=== PATIENT | male | born 1940 | race Caucasian/White ===

== ENCOUNTER 2016-09-06 11:12 | Day surgery (SDC) | payer MEDICARE, OTHER ==
[2016-09-06] MEDS ORDERED: LACTATED RINGERS 1,000 ML IV ONE (11:36)
[2016-09-06] MEDS ORDERED: MIDAZOLAM 2 MG/2 ML VIAL IVP ONE (14:17)
[2016-09-06] MEDS ORDERED: fentaNYL 100 MCG/2 ML VIAL IVP ONE (14:17)
== END 2016-09-06 11:13 | disposition home or self-care (01) ==
PROC: 0DBC8ZX Excision of Ileocecal Valve, Via Natural or Artificial Opening Endoscopic, Diagnostic (ICD-10-PCS; principal; 2016-09-06 12:15)
DX: Z12.11 Encounter for screening for malignant neoplasm of colon (principal); K57.30 Diverticulosis of large intestine without perforation or abscess without bleeding; D17.5 Benign lipomatous neoplasm of intra-abdominal organs; Z87.891 Personal history of nicotine dependence; Z80.0 Family history of malignant neoplasm of digestive organs; Z83.3 Family history of diabetes mellitus; Z82.49 Family history of ischemic heart disease and other diseases of the circulatory system; Z80.1 Family history of malignant neoplasm of trachea, bronchus and lung; Z81.1 Family history of alcohol abuse and dependence; Z79.82 Long term (current) use of aspirin
CPT/HCPCS: 45385; J7120

== ENCOUNTER 2017-01-23 19:07 | Emergency (ER) | payer MEDICARE, OTHER ==
[2017-01-23] MEDS ORDERED: SODIUM CHLORIDE FLUSH 0.9% 10 ML SYRINGE IVP ONE (19:42)
[2017-01-23 19:45] LABS: BILIRUBIN,URINE NEGATIVE (NEGATIVE)
[2017-01-23 19:46] LABS: UA CHARGE (STRIP ONLY) YES; UR CULTURE IF IND NOT INDICATED
[2017-01-23 19:54] LABS: BASOPHILS % (AUTO) 0.3 %; EOSINOPHILS # (AUTO) 0.1 10^3/uL (0.0-0.7); EOSINOPHILS % (AUTO) 0.6 %; HCT - HEMATOCRIT 45.1 % (42.0-52.0); HGB - HEMOGLOBIN 15.6 g/dL (14.0-18.0); LYMPHOCYTES # (AUTO) 1.3 10^3/uL (1.5-3.5); LYMPHOCYTES % (AUTO) 8.6 %; MEAN CORPUSCULAR HEMOGLOBIN 33.7 pg (27.0-31.0); MEAN CORPUSCULAR HGB CONC 34.5 g/dL (32.0-36.0); MEAN CORPUSCULAR VOLUME 97.7 fL (80.0-94.0); MEAN PLATELET VOLUME 10.2 fL (7.4-11.4); MONOCYTES # (AUTO) 0.5 10^3/uL (0.0-1.0); MONOCYTES % (AUTO) 3.3 %; NEUTROPHILS # (AUTO) 13.2 10^3/uL (1.5-6.6); NEUTROPHILS % (AUTO) 87.2 %; RED BLOOD COUNT 4.62 10^6/uL (4.70-6.10); RED CELL DISTRIBUTION WIDTH 12.1 % (12.0-15.0); UNCORRECTED WHITE BLOOD COUNT 15.2 x10^3/uL; WHITE BLOOD COUNT 15.2 x10^3/uL (4.8-10.8)
[2017-01-23] MEDS: SODIUM CHLORIDE 0.9% 1,000 ML IV ONE (20:18)
[2017-01-23 20:29] LABS: ALBUMIN/GLOBULIN RATIO 1.6 (1.0-2.2); CALCIUM 9.3 mg/dL (8.5-10.3); CREATININE 0.9 mg/dL (0.6-1.2); POTASSIUM 3.6 mmol/L (3.5-5.0); TOTAL PROTEIN 6.8 g/dL (6.7-8.2)
--- NOTE | 2017-01-23 21:13 | ED Physician Documentation ---
PD HPI ABD PAIN - Stated complaint Stated Complaint: ABD PX - Chief complaint Chief Complaint: Abd Pain - History obtained from History obtained from: Patient, Family - History of Present Illness Timing - onset: How many hours ago (6) Timing - duration: Hours (6) Timing - details: Gradual onset Pain level max: 7 Pain level now: 5 Quality: Aching, Pain Location: All over / everywhere Radiation: Other (non-radiating) Improved by: Other (nothing) Worsened by: Other (states nothing makes the pain worse) Associated symptoms: Nausea. No: Fever, Vomiting, Hematemesis, Diarrhea, Constipation, Melena, Hematochezia, Dysuria, Hematuria, Chest pain, Dizzy Similar symptoms before: Has not had sx before Recently seen: Not recently seen - Additional information Additional information: started after eating chicken thighs and ham for lunch Review of Systems Ten Systems: 10 systems reviewed and negative Constitutional: denies: Fever, Chills Nose: denies: Rhinorrhea / runny nose, Congestion Throat: denies: Sore throat Cardiac: denies: Chest pain / pressure Respiratory: denies: Cough GI: denies: Vomiting, Diarrhea, Hematemesis, Bloody / black stool Skin: denies: Rash Musculoskeletal: denies: Neck pain, Back pain Neurologic: denies: Headache PD PAST MEDICAL HISTORY - Past Medical History Cardiovascular: Hypertension Respiratory: Sleep apnea Endocrine/Autoimmune: None GI: Colon polyps : Benign prostate hypertrophy Psych: None Musculoskeletal: Osteoarthritis Derm: None - Past Surgical History General: Colonoscopy HEENT: Tonsil/Adenoidectomy - Present Medications Home Medications: Ambulatory Orders Medication Instructions Recorded Confirmed Losartan [Cozaar] 100 mg PO DAILY 11/29/12 09/06/16 Aspirin 81 mg PO DAILY 01/17/13 09/06/16 Multivitamin [Multivitamins] 1 each PO DAILY 01/17/13 09/06/16 Triamterene/Hydrochlorothiazid 1 tab PO DAILY 09/05/16 09/06/16 [Triamterene-Hctz 37.5-25 mg Cp] Amox/Clav 875/125 [Augmentin] 1 each PO Q12H #20 tablet 01/23/17 - Allergies Allergies/Adverse Reactions: Allergies Allergy/AdvReac Type Severity Reaction Status Date / Time iodine Allergy Intermediate Hives Verified 01/17/13 08:09 IV DYES AdvReac Anaphylaxis Uncoded 01/23/17 19:19 PD ED PE NORMAL - Vitals Vital signs reviewed: Yes - General General: Alert and oriented X 3, No acute distress, Well developed/nourished - HEENT HEENT: PERRL, Moist mucous membranes - Neck Neck: Supple, no meningeal sign - Cardiac Cardiac: RRR, Strong equal pulses - Respiratory Respiratory: No respiratory distress, Clear bilaterally - Abdomen Abdomen: Normal bowel sounds, Soft, Non tender, Non distended - Back Back: No spinal TTP - Derm Derm: Warm and dry, No rash - Neuro Neuro: Alert and oriented X 3 - Psych Psych: Normal mood, Normal affect Results - Vitals Vitals: Vital Signs - 24 hr 01/23/17 01/23/17 19:13 22:46 Temperature 36.6 C 36.8 C Heart Rate 65 88 Respiratory 17 20 Rate Blood Pressure 169/83 H 163/86 H O2 Saturation 95 98 Oxygen O2 Source Room air - Labs Labs: Laboratory Tests 01/23/17 01/23/17 01/23/17 19:32 19:48 20:05 WBC 15.2 H RBC 4.62 L Hgb 15.6 Hct 45.1 MCV 97.7 H MCH 33.7 H MCHC 34.5 RDW 12.1 Plt Count 144 MPV 10.2 Neut # 13.2 H Lymph # 1.3 L Miner # 0.5 Eos # 0.1 Baso # 0.0 Absolute Nucleated RBC 0.00 Nucleated RBCs 0.0 Sodium 140 Potassium 3.6 Chloride 103 Carbon Dioxide 29 Anion Gap 8.0 BUN 25 H Creatinine 0.9 Estimated GFR (MDRD) 82 L Glucose 199 H Lactic Acid Calcium 9.3 Total Bilirubin 1.0 AST 37 ALT 49 Alkaline Phosphatase 54 Total Protein 6.8 Albumin 4.2 Globulin 2.6 Albumin/Globulin Ratio 1.6 Lipase 31 Urine Color YELLOW Urine Clarity CLEAR Urine pH 6.0 Ur Specific Murphy 1.025 Urine Protein NEGATIVE Urine Glucose (UA) NEGATIVE Urine Ketones 15 H Urine Occult Blood NEGATIVE Urine Nitrite NEGATIVE Urine Bilirubin NEGATIVE Urine Urobilinogen 0.2 (NORMAL) Ur Leukocyte Esterase NEGATIVE Ur Microscopic Review NOT INDICATED Urine Culture Comments NOT INDICATED 01/23/17 20:05 WBC RBC Hgb Hct MCV MCH MCHC RDW Plt Count MPV Neut # Lymph # Miner # Eos # Baso # Absolute Nucleated RBC Nucleated RBCs Sodium Potassium Chloride Carbon Dioxide Anion Gap BUN Creatinine Estimated GFR (MDRD) Glucose Lactic Acid 1.4 Calcium Total Bilirubin AST ALT Alkaline Phosphatase Total Protein Albumin Globulin Albumin/Globulin Ratio Lipase Urine Color Urine Clarity Urine pH Ur Specific Murphy Urine Protein Urine Glucose (UA) Urine Ketones Urine Occult Blood Urine Nitrite Urine Bilirubin Urine Urobilinogen Ur Leukocyte Esterase Ur Microscopic Review Urine Culture Comments - Rads (name of study) CT abdomen and pelvis Radiology: Prelim report reviewed, EMP read contemporaneously, See rad report ( Acute sigmoid diverticulitis. No complication such as perforation or an abscess. No obstruction. Normal appendix. Marked prostate and seminal vesicle enlargement. ) PD MEDICAL DECISION MAKING - ED course Complexity details: reviewed results, re-evaluated patient, considered differential, d/w patient, d/w family ED course: Patient is a 76-year-old gentleman with abdominal pain today, found to have acute sigmoid diverticulitis that is uncomplicated. He is well-appearing, nontoxic. Afebrile. Did discuss admission, but prefers to go home at this time. Started on Augmentin. We will have him follow-up closely with his PCP. He will return if he worsens including fevers or worsening abdominal pain. Patient and family counseled regarding signs and symptoms for which I believe and urgent re-evaluation would be necessary. Patient with good understanding of and agreement to plan and is comfortable going home at this time This document was made in part using voice recognition software. While efforts are made to proofread this document, sound alike and grammatical errors may occur. Departure - Departure Disposition: 01 Home, Self Care Clinical Impression: Diverticulitis Qualifiers: Diverticulitis site: large intestine Diverticulitis bleeding: without bleeding Diverticulitis complication: without perforation or abscess Qualified Code(s): K57.32 - Diverticulitis of large intestine without perforation or abscess without bleeding Condition: Good Instructions: ED Diverticulitis Follow-Up: Christopher Motta MD [Primary Care Provider] - Within 3 Days (for repeat evaluation ) Prescriptions: Amox/Clav 875/125 [Augmentin] 1 each PO Q12H #20 tablet Comments: Return if you worsen including worsening pain or fevers. Take all antibiotics until gone. Discharge Date/Time: 01/23/17 22:49
--- NOTE | 2017-01-23 21:54 | CT Preliminary Report ---
Exam: CT Abdomen/Pelvis W/O IMPRESSION: 1. Acute sigmoid diverticulitis. 2. No complication such as perforation or an abscess. No obstruction. Normal appendix. 3. Marked prostate and seminal vesicle enlargement. [facility] SITE ID: [id number]
--- NOTE | 2017-01-23 22:01 | CT Report ---
EXAM: CT ABDOMEN AND PELVIS EXAM DATE: 01/23/2017 09:18 PM. CLINICAL HISTORY: Abdominal pain. COMPARISONS: None. TECHNIQUE: Routine helical CT imaging was performed through the abdomen and pelvis. IV contrast: None . Enteric contrast: None. Reconstructions: Coronal and sagittal. In accordance with CT protocol optimization, one or more of the following dose reduction techniques w ere utilized for this exam: automated exposure control, adjustment of mA and/or KV based on patient s ize, or use of iterative reconstructive technique. FINDINGS: Lung Bases: Mild cardiac enlargement. No effusions. Small hiatal hernia. Liver: Normal. No masses. Gallbladder/Bile Ducts: Unremarkable. Spleen: Normal. Pancreas: Normal. Adrenal Glands: Normal. Kidneys: Normal. No masses or hydronephrosis. Peritoneal Cavity/Bowel: Long segment of moderate distal sigmoid colon wall thickening in the setting of diverticulosis and mild adjacent stranding. No complication such as perforation, obstruction or a n abscess. The appendix is well visualized and normal. No bulky adenopathy. Pelvic Organs: Moderate to marked seminal vesicle and prostate gland enlargement with multiple coarse prostate calcifications noted. Vasculature: Diffuse atheromatous plaques are present in the abdominal aorta and branch vessels. No a neurysm. Normal IVC. Bones: No significant abnormality. Other: None. IMPRESSION: 1. Acute sigmoid diverticulitis. 2. No complication such as perforation or an abscess. No obstruction. Normal appendix. 3. Marked prostate and seminal vesicle enlargement. [facility] Referring Provider Line: [phone] SITE ID: [id number]
[2017-01-23] MEDS: AMOX/CLAV 875 MG/125 MG TABLET PO STA (22:38)
[2017-01-23] MEDS ORDERED: AMOX/CLAV 875 MG/125 MG TABLET PO ONE (22:39)
[2017-01-23 22:49] VITALS: BP 163/86
== END 2017-01-23 22:49 | disposition home or self-care (01) ==
LOC: ED 19:07
DX: K57.32 Diverticulitis of large intestine without perforation or abscess without bleeding (principal); I10 Essential (primary) hypertension; Z79.82 Long term (current) use of aspirin
CPT/HCPCS: 36415; 74176; 80053; 81001; 81003; 83605; 83690; 85025; 87086; 99283; 99284

== ENCOUNTER 2017-01-26 13:18 | Observation (INO) | payer MEDICARE, OTHER ==
--- NOTE | 2017-01-26 16:18 | ED Physician Documentation ---
PD HPI ABD PAIN - Stated complaint Stated Complaint: ABD PX - Chief complaint Chief Complaint: Abd Pain - History obtained from History obtained from: Patient - History of Present Illness Timing - onset: How many days ago (5-6 days of left abd pain, seen 3 days ago in ER and Rx with Augmentin for diverticulitis. He says having worse pain the past 3 days, some diarrhea, nausea, less appetite.) Timing - details: Gradual onset, Still present (worsened the past 3 days since being seen.) Quality: Cramping, Aching, Sharp, Pain Location: LUQ, LLQ Radiation: No: Chest, Left flank Improved by: No: Eating Worsened by: Eating Associated symptoms: Nausea, Diarrhea, Loss of appetite. No: Fever, Vomiting, Hematochezia, Weight loss Recently seen: Emergency Dept (3 days ago for same, Dx with diverticulitis sigmoid by CT, with elevated white count. Was able to treat outpatient. Patient says some diarrhea since discharge and has had worsened pain left side. No generalized pain. Nausea and less appetite, but no vomiting. No blood in stool.) Review of Systems Constitutional: reports: Myalgias. denies: Fever, Chills Nose: denies: Rhinorrhea / runny nose, Congestion Throat: denies: Sore throat Cardiac: denies: Chest pain / pressure Respiratory: denies: Cough GI: reports: Abdominal Pain, Nausea, Diarrhea. denies: Vomiting, Constipation, Bloody / black stool : denies: Dysuria, Frequency Skin: denies: Rash, Lesions Musculoskeletal: denies: Back pain Neurologic: reports: Generalized weakness. denies: Focal weakness, Numbness, Near syncope Endocrine: denies: Weight loss Immunocompromised: denies: Immunocompromised PD PAST MEDICAL HISTORY - Past Medical History Cardiovascular: Hypertension Respiratory: Sleep apnea Endocrine/Autoimmune: None GI: Colon polyps : Benign prostate hypertrophy Psych: None Musculoskeletal: Osteoarthritis Derm: None - Past Surgical History Past Surgical History: Yes General: Colonoscopy HEENT: Tonsil/Adenoidectomy - Present Medications Home Medications: Ambulatory Orders Medication Instructions Recorded Confirmed Losartan [Cozaar] 100 mg PO DAILY 11/29/12 01/26/17 Aspirin 81 mg PO DAILY 01/17/13 01/26/17 Multivitamin [Multivitamins] 1 each PO DAILY 01/17/13 01/26/17 Triamterene/Hydrochlorothiazid 1 tab PO DAILY 09/05/16 01/26/17 [Triamterene-Hctz 37.5-25 mg Cp] Amox/Clav 875/125 [Augmentin] 1 each PO Q12H #20 tablet 01/23/17 01/26/17 Tamsulosin [Flomax] 0.4 mg PO ONCE 01/26/17 01/26/17 - Allergies Allergies/Adverse Reactions: Allergies Allergy/AdvReac Type Severity Reaction Status Date / Time iodine Allergy Intermediate Hives Verified 01/26/17 13:23 IV DYES AdvReac Anaphylaxis Uncoded 01/26/17 13:23 - Social History Does the pt smoke?: No Smoking Status: Never smoker Does the pt drink ETOH?: Yes Does the pt have substance abuse?: No - Family History Family history: reports: Non contributory - Immunizations Immunizations are current?: Yes PD ED PE NORMAL - Vitals Vital signs reviewed: Yes - General General: Alert and oriented X 3, Well developed/nourished - HEENT HEENT: PERRL (nonicteric), Pharynx benign - Neck Neck: Supple, no meningeal sign, No adenopathy - Cardiac Cardiac: RRR, No murmur - Respiratory Respiratory: Clear bilaterally - Abdomen Abdomen: Normal bowel sounds, Non distended, No organomegaly, Other (tender left abdomen upper and lower locally without percussion nor rebound tenderness. Bowel sounds somewhat diminished. ) - Back Back: No CVA TTP - Derm Derm: Normal color, No rash - Extremities Extremities: No tenderness to palpate, Normal ROM s pain, No edema, No calf tenderness / cord - Neuro Neuro: Alert and oriented X 3, No motor deficit, Normal speech Results - Vitals Vitals: Vital Signs - 24 hr 01/26/17 13:21 Temperature 36.2 C L Heart Rate 81 Respiratory 16 Rate Blood Pressure 148/79 H O2 Saturation 97 Oxygen O2 Source Room air - Labs Labs: Laboratory Tests 01/26/17 01/26/17 01/26/17 16:50 17:31 17:31 WBC 11.7 H RBC 4.98 Hgb 16.5 Hct 48.8 MCV 98.0 H MCH 33.1 H MCHC 33.8 RDW 12.2 Plt Count 134 MPV 9.9 Neut # 9.0 H Lymph # 1.6 Walker # 0.9 Eos # 0.2 Baso # 0.1 Absolute Nucleated RBC 0.00 Nucleated RBCs 0.0 Sodium 142 Potassium 3.9 Chloride 102 Carbon Dioxide 30 Anion Gap 10.0 BUN 17 Creatinine 0.8 Estimated GFR (MDRD) 94 Glucose 105 H Lactic Acid Calcium 9.5 Total Bilirubin 1.2 H AST 23 ALT 34 Alkaline Phosphatase 59 Total Protein 7.7 Albumin 4.6 Globulin 3.1 Albumin/Globulin Ratio 1.5 Lipase 23 Urine Color YELLOW Urine Clarity CLEAR Urine pH 6.5 Ur Specific Rob[place] 1.020 Urine Protein NEGATIVE Urine Glucose (UA) NEGATIVE Urine Ketones NEGATIVE Urine Occult Blood NEGATIVE Urine Nitrite NEGATIVE Urine Bilirubin NEGATIVE Urine Urobilinogen 0.2 (NORMAL) Ur Leukocyte Esterase NEGATIVE Ur Microscopic Review NOT INDICATED Urine Culture Comments NOT INDICATED 01/26/17 17:59 WBC RBC Hgb Hct MCV MCH MCHC RDW Plt Count MPV Neut # Lymph # Walker # Eos # Baso # Absolute Nucleated RBC Nucleated RBCs Sodium Potassium Chloride Carbon Dioxide Anion Gap BUN Creatinine Estimated GFR (MDRD) Glucose Lactic Acid 0.9 Calcium Total Bilirubin AST ALT Alkaline Phosphatase Total Protein Albumin Globulin Albumin/Globulin Ratio Lipase Urine Color Urine Clarity Urine pH Ur Specific Rob[place] Urine Protein Urine Glucose (UA) Urine Ketones Urine Occult Blood Urine Nitrite Urine Bilirubin Urine Urobilinogen Ur Leukocyte Esterase Ur Microscopic Review Urine Culture Comments - Rads (name of study) abd CT Radiology: Prelim report reviewed, EMP read contemporaneously (no abscess nor perforation. Similar sigmoid wall thickening/ stranding.) PD MEDICAL DECISION MAKING - ED course Complexity details: reviewed results, considered differential (Persistent pain and nausea, actually worsened, despite oral abx for 3 days. Does not have peritoneal signs, and CT does not show perforation nor abscess. However, is worse symptoms and still some leukocytosis, so need to enhance treatment to IV dosing/meds. ), d/w patient, d/w clothing consultant (Dr. Ventura, Hospitalist, who will pass on information to nocturnal hospitalist) Departure - Departure Disposition: ED Place in Observation Clinical Impression: Failure of outpatient treatment Abdominal pain Qualifiers: Abdominal location: left upper quadrant Qualified Code(s): R10.12 - Left upper quadrant pain Diverticulitis Qualifiers: Diverticulitis site: large intestine Diverticulitis bleeding: without bleeding Diverticulitis complication: without perforation or abscess Qualified Code(s): K57.32 - Diverticulitis of large intestine without perforation or abscess without bleeding Condition: Stable Record reviewed to determine appropriate education?: Yes
[2017-01-26] MEDS ORDERED: cefTRIAXone 1 GM in SODIUM CHLORIDE 0.9% MINIBAG 100 ML IV STA (16:46)
[2017-01-26] MEDS ORDERED: metroNIDAZOLE 500 MG/100 ML 100 ML IV ONE (16:46)
[2017-01-26] MEDS ORDERED: ONDANSETRON 4 MG/2 ML VIAL IVP STA (16:48)
[2017-01-26] MEDS ORDERED: HYDROmorphone 1 MG/ML SYRINGE IVP STA (16:48)
[2017-01-26 17:06] LABS: BILIRUBIN,URINE NEGATIVE (NEGATIVE); PH,URINE 6.5 PH (5.0-7.5)
[2017-01-26] MEDS ORDERED: HYDROmorphone 1 MG/ML SYRINGE ONE (17:07)
[2017-01-26] MEDS ORDERED: ONDANSETRON 4 MG/2 ML VIAL ONE (17:07)
[2017-01-26] MEDS ORDERED: cefTRIAXone 1 GM VIAL ONE (17:08)
[2017-01-26 17:09] LABS: UA CHARGE (STRIP ONLY) YES; UR CULTURE IF IND NOT INDICATED
[2017-01-26] MEDS ORDERED: metroNIDAZOLE 500 MG/100 ML 100 ML ONE (17:53)
[2017-01-26 17:59] LABS: BASOPHILS # (AUTO) 0.1 10^3/uL (0.0-0.1); BASOPHILS % (AUTO) 0.8 %; EOSINOPHILS # (AUTO) 0.2 10^3/uL (0.0-0.7); EOSINOPHILS % (AUTO) 1.4 %; HCT - HEMATOCRIT 48.8 % (42.0-52.0); HGB - HEMOGLOBIN 16.5 g/dL (14.0-18.0); LYMPHOCYTES # (AUTO) 1.6 10^3/uL (1.5-3.5); LYMPHOCYTES % (AUTO) 13.8 %; MEAN CORPUSCULAR HEMOGLOBIN 33.1 pg (27.0-31.0); MEAN CORPUSCULAR HGB CONC 33.8 g/dL (32.0-36.0); MEAN PLATELET VOLUME 9.9 fL (7.4-11.4); MONOCYTES # (AUTO) 0.9 10^3/uL (0.0-1.0); MONOCYTES % (AUTO) 7.6 %; NEUTROPHILS % (AUTO) 76.4 %; RED BLOOD COUNT 4.98 10^6/uL (4.70-6.10); RED CELL DISTRIBUTION WIDTH 12.2 % (12.0-15.0); UNCORRECTED WHITE BLOOD COUNT 11.7 x10^3/uL; WHITE BLOOD COUNT 11.7 x10^3/uL (4.8-10.8)
[2017-01-26 18:00] LABS: ALBUMIN/GLOBULIN RATIO 1.5 (1.0-2.2); BILIRUBIN,TOTAL 1.2 mg/dL (0.2-1.0); CALCIUM 9.5 mg/dL (8.5-10.3); CREATININE 0.8 mg/dL (0.6-1.2); POTASSIUM 3.9 mmol/L (3.5-5.0); TOTAL PROTEIN 7.7 g/dL (6.7-8.2)
[2017-01-26] MEDS ORDERED: KETOROLAC 60 MG/2 ML VIAL IVP STA (18:39)
[2017-01-26] MEDS ORDERED: KETOROLAC 30 MG/ML VIAL ONE (18:46)
[2017-01-26] MEDS ORDERED: SODIUM CHLORIDE 0.9% 1,000 ML IV ONE (18:48)
--- NOTE | 2017-01-26 19:02 | CT Preliminary Report ---
Exam: CT Abdomen/Pelvis W/O IMPRESSION: 1. 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 2. Distal colonic diverticulosis without noncontrast CT evidence of acute diverticulitis. [facility] The above critical findings were discussed with Dr. Murray by Dr. Samantha Finnegan at 18:56 hrs on . SITE ID: [id number]
--- NOTE | 2017-01-26 19:05 | CT Report ---
EXAM: CT ABDOMEN AND PELVIS EXAM DATE: 01/26/2017 06:12 PM. CLINICAL HISTORY: Diverticulitis, worsening pain after 3 days of treatment area COMPARISONS: 01/23/2017. TECHNIQUE: Routine helical CT imaging was performed through the abdomen and pelvis. IV contrast: None . Enteric contrast: None. Reconstructions: Coronal and sagittal. In accordance with CT protocol optimization, one or more of the following dose reduction techniques w ere utilized for this exam: automated exposure control, adjustment of mA and/or KV based on patient s ize, or use of iterative reconstructive technique. FINDINGS: Lung Bases: Mild linear bibasilar atelectasis. Liver: Unremarkable noncontrast appearance. Gallbladder/Bile Ducts: Unremarkable. No visualized stones or biliary ductal dilatation. Spleen: Normal size. Ill-defined wedge-shaped hypoattenuating region in the midportion/inferior splee n (see axial image 19 and coronal image 38). Mild perisplenic fat stranding. Pancreas: No contour deforming mass or ductal dilatation. Adrenal Glands: Normal. Kidneys and Ureters: No contour deforming mass, stones, hydronephrosis, or hydroureter. Peritoneal Cavity/Bowel: Descending and sigmoid colon diverticulosis. No evidence of focal bowel wall thickening or adjacent mesenteric fat stranding to suggest acute inflammatory process. No evidence f or bowel obstruction. The appendix is normal. No free fluid, pneumoperitoneum, or hortencia adenopathy. Pelvic Organs: The prostate gland is enlarged, measuring 6 cm in transverse dimension, with a hypertr ophied median lobe protruding into the bladder base. Mild diffuse bladder wall thickening, possibly s equela of chronic obstructive uropathy. Vasculature: Extensive atherosclerotic calcifications within the aorta and iliac arteries. No aneurys m. Bones: Mild degenerative changes within the spine. No acute bony abnormality. Other: Unchanged tiny fat-containing right inguinal hernia. IMPRESSION: 1. 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 2. Distal colonic diverticulosis without noncontrast CT evidence of acute diverticulitis. [facility] The above critical findings were discussed with Dr. Murray by Dr. Samantha Finnegan at 18:56 hrs on . Referring Provider Line: [phone] SITE ID: [id number]
[2017-01-26] MEDS ORDERED: SODIUM CHLORIDE FLUSH 0.9% 10 ML SYRINGE IVP PRN (19:58)
[2017-01-26] MEDS ORDERED: ONDANSETRON ODT 4 MG TABLET TL STA (20:02)
[2017-01-26] MEDS ORDERED: HYDROcod/ACETAM 10 MG/325 MG TABLET PO PRN (20:02)
[2017-01-26] MEDS ORDERED: ONDANSETRON 4 MG/2 ML VIAL IVP PRN (20:02)
[2017-01-26] MEDS ORDERED: CIPROFLOXACIN 400 MG/200 ML 200 ML IV SCH (21:00)
[2017-01-26] MEDS ORDERED: TAMSULOSIN 0.4 MG CAPSULE PO SCH (21:00)
[2017-01-26] MEDS ORDERED: metroNIDAZOLE 500 MG/100 ML 100 ML IV SCH (21:00)
[2017-01-26] MEDS: SODIUM CHLORIDE FLUSH 0.9% 10 ML SYRINGE IVP SCH (21:28)
--- NOTE | 2017-01-26 22:11 | HISTORY & PHYSICAL EXAMINATION ---
DATE OF ADMISSION: 01/26/2017 PRIMARY CARE PROVIDER: Jorge Motta MD ADMITTING PROVIDER: Nini Pizarro MD CHIEF COMPLAINT: Worsening diverticulitis pain. HISTORY OF PRESENT ILLNESS: The patient is a 76-year-old man who was seen in the emergency room a few days ago with left lower quadrant pain, was diagnosed with diverticulitis because of diverticulosis on CT and by labs. He was put on Augmentin. He developed nausea and mild diarrhea with the Augmentin. Today, he felt like his pain was sharper, more stabbing, and came back to the emergency room. He was evaluated by Dr. Murray and a repeat CT scan showed no change. White cell count was improved. He was afebrile, but on the basis of increasing pain, Dr. Murray labeled this as failed outpatient treatment of diverticulitis and he has asked us to place him under observation. The patient was not given the option of going home. He now feels like he is too sedated to drive home with the use of narcotics, and his cannot come pick him up. In pondering his pain management, he feels like it would be good to place him in observation to see if he can respond to oral pain medicines to be better controlled with home. He has had no vomiting. Able to keep food down. He is completely ambulatory. Plays golf 2 times a week and has not been impaired this week. PAST MEDICAL HISTORY 1. Obstructive sleep apnea hypopnea syndrome since June 2005. He was tried on CPAP, but it does not work for him so he stopped using it and was re-seen in 2014. He was tried on a new mask and with his last visit August 2015 was mainly compliant. 2. Hypertension. An increase in hypertension with poor control resulted in [facility]- [facility] 2014. 3. Benign prostatic hypertrophy. 4. Bilateral cataracts with cataract extraction and intraocular lens implant. One was November 2012 and the other was December 2012. 5. History of colon polyps. A colonoscopy performed in 2009. He had a followup colonoscopy August 2016. ALLERGIES: IODINE. MEDICATIONS 1. Aspirin 81 mg a day. 2. Cozaar 100 mg a day. 3. Tamsulosin 0.4 mg a day. 4. Multivitamin 1 tablet daily. 5. Triamterene/hydrochlorothiazide 1 tablet daily. 6. Augmentin 875 with clavulanic acid 125 mg every 12 hours as needed since January 23. SOCIAL HISTORY: He stopped smoking in 1989. He usually has 2 glasses of wine, 2 cocktails, and possibly a beer on the day he golfs on a daily basis. He has been told that he drinks too much and feels this is an arbitrary number and that he is not being impaired because of it. He has no history of other recreational substance abuse, specifically cannabis, cocaine, heroin, LSD, methamphetamines. He is to his first . They live in their own home. They have been living on the [place] for 17 years. 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 FAMILY HISTORY: Mother had liver cancer. Father had diabetes. One sibling had mesothelioma and he has never had children. REVIEW OF SYSTEMS: CONSTITUTIONAL: He denies any complains of fever, chills, sweats, unexpected weight changes. ENT: Denies any problems with vision, headache, problems swallowing, dentition, or hearing. PULMONARY: Denies bronchitis, emphysema, chest congestion. CARDIAC: Denies edema, orthopnea, chest pain, valvular heart disease, murmurs. GASTROINTESTINAL: This is his first presentation of abdominal pain. No bloody diarrhea. Mild diarrhea with the antibiotic. GENITOURINARY: Urgency, frequency, decreased stream, nocturia all present as forms of prostatism. Unchanged. No hematuria, no flank pain. JOINTS: Generalized aching that he attributes to aging and mild osteoarthritis. Unchanged for several decades. No new joint effusions, trauma. SKIN: Denies moles, lesions, rashes. PSYCHIATRIC: Denies anxiety, depression, suicidal ideation. SECURITY OPERATIONS ANALYST: Denies syncope, seizures, memory loss. PHYSICAL EXAMINATION GENERAL: He is a well-nourished, well-developed, middle-aged white male who looks younger than stated age. VITAL SIGNS: Temperature is 36.2, pulse of 66, blood pressure is 148/90. He has received sedation. He has received narcotics for pain management and is slightly sedated with speech slightly slurred. He is highly annoyed at being here the length of time he has been. He is also annoyed that he feels I am asking intrusive and personal questions even after I explained to him what a history and physical does and why we ask the questions we do. He is particularly annoyed at my questions about alcohol use and has anybody ever told that he should not drink as much as he does. HEAD AND NECK: Unremarkable. Pupils are reactive. Lips are dry. Oral mucosa is pink. No facial asymmetry. Speech is normal. Neck is supple without goiter, bruits, or adenopathy. LUNGS: Clear to auscultation and percussion with slight barrel chest. No prolonged exhalation. CARDIOVASCULAR: PMI is normally placed with a regular rate and rhythm. ABDOMEN: Obese, soft. Minimally tender in the left lower quadrant without rebound or guarding. There are no distention, no rebound, no guarding. Normal bowel sounds. EXTREMITIES: Warm. Without clubbing, cyanosis, or edema. He has some mild superficial venous perforators around the medial malleoli. Well tanned. NEUROLOGIC: He is alert and oriented to person, place, and time. Gives a lucid history. Follows 2-step commands. Upper and lower extremity strength testing are normal. No tremors. LABORATORIES: CMP is normal with a random glucose 105. He had a random glucose of 199 on January 23. Total bilirubin is 1.2. Liver enzymes are normal. In the past, his bilirubin has been 1.3 in 2015. White cell count is 11.7. It down from 15.2. Hemoglobin and hematocrit are normal. MCV mildly elevated at 98. Platelets 134. Urinalysis is negative. IMAGING: CT of the abdomen and pelvis was done January 23 and done today and compared. He has mild linear bibasilar atelectasis. He has ill-defined wedge- shaped hypo-attenuating region in the mid portion inferior spleen. No splenomegaly. Descending and sigmoid colon diverticulosis with no focal bowel wall thickening or adjacent stranding to suggest acute inflammatory process. No evidence of bowel obstruction. Prostate is enlarged. ASSESSMENT/PLAN 1. Left lower quadrant abdominal pain. He is being treated ostensibly as diverticulitis. He has an elevated white cell count and pain in the appropriate area. However, 2 CT scans confirmed no adjacent bowel inflammation or stranding. This is puzzling. He will be placed in observation overnight. Changed to Cipro and Flagyl. Transition to oral pain medicines and hopefully sent home with pain controlled. He is amenable to that. 2. Abnormal CT of the spleen. Nonspecific finding. Dr. Murray has spoken to General Surgery about this. I do not know what the conversation is and I will read Dr. Murray's note. 3. Alcohol abuse. Mild and continuous. Mild macrocytosis, but no evidence of cirrhosis or thrombocytopenia on exam. 4. Hypertension. Resume his usual medications. Not at goal. I hesitated to tell him that he might want to stop drinking. He was already annoyed as it was. 5. Obstructive sleep apnea. No CPAP mask brought from home. 6. FULL CODE STATUS per patient's wishes. 7. Deep venous thrombosis prophylaxis will just be encouraging ambulation. JOB #: [id number] EXT JOB #:[id number] MTDD
[2017-01-26] MEDS ORDERED: METOPROLOL SUCCINATE 50 MG TABLET PO SCH (22:21)
[2017-01-27] MEDS: metroNIDAZOLE 500 MG/100 ML 100 ML IV SCH ×2 (00:28→06:07)
[2017-01-27 06:03] LABS: BASOPHILS # (AUTO) 0.1 10^3/uL (0.0-0.1); BASOPHILS % (AUTO) 0.6 %; EOSINOPHILS # (AUTO) 0.3 10^3/uL (0.0-0.7); EOSINOPHILS % (AUTO) 2.8 %; HCT - HEMATOCRIT 43.9 % (42.0-52.0); LYMPHOCYTES # (AUTO) 2.1 10^3/uL (1.5-3.5); LYMPHOCYTES % (AUTO) 22.4 %; MEAN CORPUSCULAR HEMOGLOBIN 33.8 pg (27.0-31.0); MEAN CORPUSCULAR HGB CONC 34.3 g/dL (32.0-36.0); MEAN CORPUSCULAR VOLUME 98.5 fL (80.0-94.0); MEAN PLATELET VOLUME 10.4 fL (7.4-11.4); MONOCYTES # (AUTO) 0.7 10^3/uL (0.0-1.0); MONOCYTES % (AUTO) 7.6 %; NEUTROPHILS # (AUTO) 6.2 10^3/uL (1.5-6.6); NEUTROPHILS % (AUTO) 66.6 %; NUCLEATED RED BLOOD CELLS AUTO 0.1 /100WBC; RED BLOOD COUNT 4.45 10^6/uL (4.70-6.10); UNCORRECTED WHITE BLOOD COUNT 9.4 x10^3/uL; WHITE BLOOD COUNT 9.4 x10^3/uL (4.8-10.8)
[2017-01-27] MEDS: SODIUM CHLORIDE FLUSH 0.9% 10 ML SYRINGE IVP SCH (06:07)
[2017-01-27 06:23] LABS: PLATELET ESTIMATE, MANUAL DECREASED (<130,000) (NORMAL)
--- NOTE | 2017-01-27 07:04 | PROVIDER PROGRESS NOTE ---
School Supervisor Note - School Supervisor Note School Supervisor Note: Overnight no fever. Pain at max has been a 3. Controlled by oral meds. Vitals are reviewed. clear lungs RRR Abd obese, soft, No real LLQ pain this am. No rebound or guarding. A/P LLQ pain being treated at diverticulitis. I called [facility] and had naturalization examiner MD , Dr. Helms, review the CT for the wedge infarct of the spleen. He confirms that there is no diverticultis on radiologic imaging and when we review the CT of 01/23, the wedge in the spleen is starting to appear and that the call for "itis" may be an overcall. He sees that there is diverticulosis but allows for interpretation where another radiologist would possible call for "itis" on subtle findings. In reviewing UpToDate: Splenic infarction Splenic infarction occurs when the splenic artery or one or more of its sub-branches become occluded with an infected or bland embolus or clot. Affected patients classically present with acute left upper quadrant pain and tenderness, although atypical presentations are common. As an example, in a study of 26 patients with splenic infarction seen at a single medical center, the following clinical and laboratory features were noted [50]: ?Left-sided abdominal pain: 48 percent; abdominal pain was absent in 16 percent / He has this ?Fever >38C: 36 percent. Not present. ?Left upper quadrant abdominal tenderness: 36 percent; abdominal tenderness was absent in 32 percent. He has LLQ pain. ?Nausea or vomitin percent. Present. ?Splenomegaly: 32 percent. Radiology does feel there is mild hepatospenomegaly and that liver does look cirrhotic. ?Elevated serum lactate dehydrogenase (LDH): 71 percent. Not checked in him. ?White blood cell count >12,000/microL: 56 percent. Present. Others have described fever, unexplained pleural infusion, and/or splenic or peritoneal friction rub as initial manifestations of a septic splenic infarction [50,51]. Splenic infarction can occur in a variety of settings [52]: 1. Presence of a hypercoagulable state (eg, malignancy, antiphospholipid syndrome) [53]. 2. Embolic disease (eg, atrial fibrillation, patent foramen ovale, atheromatous disease, infective endocarditis) [44,54,55]. Splenic artery embolization has been therapeutically employed in order to reduce splenic blood flow in some patients with severe portal hypertension, prior to laparoscopic splenectomy in order to diminish intraoperative blood loss, as well as for the treatment of splenic injury [56]. (See "Ascites in adults with cirrhosis: Diuretic-resistant ascites", section on 'Splenic artery embolization' and "Hereditary spherocytosis : Clinical features, diagnosis, and treatment", section on 'Splenectomy'.) 3. Underlying myeloproliferative neoplasm with associated (often massive) splenomegaly (eg, primary myelofibrosis, post-polycythemia vera myelofibrosis). 4. Underlying hemoglobinopathy, especially sickle cell disease [57-59]. (See "Hepatic manifestations of sickle cell disease", section on 'Computed tomography ' and 'Hyposplenism and asplenia' above.) 5. Any condition associated with marked splenomegaly (eg, Gaucher disease, splenic lymphoma). (See "Gaucher disease: Pathogenesis, clinical manifestations , and diagnosis", section on 'Visceral disease'.) 6. Trauma to the spleen which compromises its vascularity. Splenic hematoma and laceration may also occur following blunt abdominal trauma. This subject is discussed in detail separately. (See "Liver, spleen, and pancreas injury in children with blunt abdominal trauma" and "Liver, spleen, and pancreas injury in children with blunt abdominal trauma", section on 'Spleen'.) 7. Splenic arterial torsion, as seen in the "wandering spleen" syndrome. (See "Causes of abdominal pain in adults", section on 'Less common causes'.) 8. Splenic infarction and splenic rupture are uncommon complications of infectious mononucleosis. (See "Clinical manifestations and treatment of Maurizio -Altman virus infection", section on 'Splenic rupture'.) Treatment of splenic infarction depends upon the underlying cause. As examples, simple cases may require only medication for relief of local pain and other forms of supportive care; splenic infarction in sickle cell disease may require therapies directed at vaso-occlusion (eg, oxygenation, transfusion) without anticoagulation; and complications such as splenic abscess or rupture may require surgical intervention. As such I do feel the diagnosis should be corrected to splenic infarct. Will discuss with the patient.
--- NOTE | 2017-01-27 08:05 | Discharge Plan ---
Discharge Plan Disposition: Home, Self Care Condition: Stable Prescriptions: HYDROcod/ACETAM 5/325 [[place] 5/325] 1 each PO Q6H PRN #20 tablet PRN Reason: Abdominal Pain Diet: Regular Activity Restrictions: Activity as Tolerated Shower Restrictions: No Driving Restrictions: No Additional Instructions or Follow Up instructions: You were admitted because of left sided abdominal pain which was initially diagnosed at diverticulitis. After 2 CT of abdomen and no response to the antibiotics you were initially given 01/23/17, we have now re-evaluated the problem and I think you have a small infarct of the spleen. I have discussed the case with radiology who carefully looked at your 01/23/[address] CT and 01/26/17 CT. I have given you a list of causes but none of them really apply to you except for mild cirrhosis and spleen enlargement from alcohol use. But this is relatively mild and should not have given you this infarct. Your cirrhosis should be much much worse to usually cause this and it is not that severe. So I wonder if you may have another problem we just haven't seen yet. Make sure you see Dr. Motta in the next 2-3 weeks. I would like him to carefully follow you and check a CBC for white cell abnormalities or platelet abnormalities. Please finish the augmentin given for the possible infection. Do 7 days not 10. So you have about 2 more days left. I have also sent you home with a prescription for a small number of pain medicine to help you sleep. No Smoking: If you smoke, Please STOP! Call for help.
[2017-01-27 08:10] VITALS: BP 152/81
[2017-01-27] MEDS ORDERED: ASPIRIN CHEW 81 MG TABLET PO SCH (09:00)
[2017-01-27] MEDS ORDERED: POLYETHYLENE GLYCOL 3350 17 GM PACKET PO SCH (09:00)
[2017-01-27] MEDS ORDERED: LOSARTAN 50 MG TABLET PO SCH (09:00)
[2017-01-27] MEDS ORDERED: TRIAMT/HCTZ 37.5 MG/25 MG CAPSULE PO SCH (09:00)
[2017-01-27] MEDS ORDERED: MULTIVITAMIN TABLET PO SCH (09:00)
--- NOTE | 2017-01-27 11:32 | DISCHARGE SUMMARY ---
DATE OF ADMISSION: 01/26/2017 DATE OF DISCHARGE: 01/27/2017 PRIMARY CARE PROVIDER: Jorge Motta MD. DISCHARGE DIAGNOSES 1. Splenic infarct. 2. Diverticulosis. 3. Alcohol abuse. 4. Mild hepatosplenomegaly. 5. Hypertension. DISCHARGE MEDICATIONS: No new medications prescribed from admit other than [place] 10/325. He is to continue his Augmentin for 3 more days. All of his other medications are the same. PRINCIPAL PROCEDURES: Repeat CT of the abdomen on 01/26 compared to 01/23. He continues to have diverticulosis, not diverticulitis, and a new wedge infarct is seen on the current CT as compared to the old CT. HOSPITAL COURSE: The patient presented as abdominal pain on 01/23. He was diagnosed with diverticulitis. This is on the basis of a CT report, elevated white cell count, and pain in the left side of his abdomen. He returned to the hospital on 01/26, stating his pain was not any better and getting worse. He has no fever, no chills. Nausea, mild diarrhea from the Augmentin. In my questioning, he has left upper quadrant abdominal pain, not left lower quadrant. He has no rebound or guarding. No peritoneal signs. I carefully reviewed the CT with a third radiologist. That radiologist on the morning of discharge states that in looking at the current CT and the CT from 01/23, the patient really has diverticulosis, not diverticulitis, and the wedge infarct was very subtle on appearance on 01/23, but definitely there today on 01/26. As such, I am changing the diagnosis from diverticulitis to a splenic infarct. He will complete 3 more days of antibiotics just for precaution sake. I do not know the etiology of the splenic infarct. He does have mild alcohol abuse with hepatosplenomegaly, but his disease state is so minimal. I have given him a list of causes for splenic infarct. Discussed the case at length with him. He has no B symptoms of lymphoma. Gaucher disease, while possible, is not likely in that his bilirubin is only minimally elevated and he does not have severe manifestations. I would like him to carefully follow up with Dr. Motta in the next 1-2 weeks to get a repeat CBC, and over the next few weeks to months be followed for routine CBCs to make sure he is not developing lymphoma. If he at all develops symptoms, would strongly recommend a peripheral flow cytometry for diagnosis. I discussed the case the my concerns with Dr Duncan Motta on the morning of discharge. JOB #: [id number] EXT JOB #:[id number] MTDChristiano
== END 2017-01-27 09:00 | disposition home or self-care (01) ==
LOC: ED 13:18 → OBS 19:59
PROVIDERS: ADMIT Specialist; ATTEND Specialist
DX: D73.5 Infarction of spleen (principal); K57.30 Diverticulosis of large intestine without perforation or abscess without bleeding; F10.188 Alcohol abuse with other alcohol-induced disorder; D75.89 Other specified diseases of blood and blood-forming organs; R16.2 Hepatomegaly with splenomegaly, not elsewhere classified; I10 Essential (primary) hypertension; G47.33 Obstructive sleep apnea (adult) (pediatric); N40.1 Benign prostatic hyperplasia with lower urinary tract symptoms; R35.0 Frequency of micturition; R35.1 Nocturia; R39.15 Urgency of urination; R39.12 Poor urinary stream; Z86.010 Personal history of colon polyps; Z79.82 Long term (current) use of aspirin; Z79.899 Other long term (current) drug therapy; Z87.891 Personal history of nicotine dependence
CPT/HCPCS: 36415; 74176; 80053; 81003; 83605; 83690; 85025; 93005; 96361; 96365; 96366; 96367; 96375; 99283; 99285; A9270; G0378; J1170; 81001; 87086

== ENCOUNTER 2017-02-03 11:05 | Outpatient (CLI) | payer MEDICARE, OTHER ==
[2017-02-03 19:16] LABS: BASOPHILS # (AUTO) 0.1 10^3/uL (0.0-0.1); BASOPHILS % (AUTO) 1.4 %; EOSINOPHILS # (AUTO) 0.6 10^3/uL (0.0-0.7); EOSINOPHILS % (AUTO) 6.8 %; HCT - HEMATOCRIT 47.8 % (42.0-52.0); HGB - HEMOGLOBIN 16.1 g/dL (14.0-18.0); LYMPHOCYTES # (AUTO) 2.3 10^3/uL (1.5-3.5); LYMPHOCYTES % (AUTO) 28.1 %; MEAN CORPUSCULAR HGB CONC 33.7 g/dL (32.0-36.0); MEAN CORPUSCULAR VOLUME 97.7 fL (80.0-94.0); MEAN PLATELET VOLUME 9.5 fL (7.4-11.4); MONOCYTES # (AUTO) 0.6 10^3/uL (0.0-1.0); MONOCYTES % (AUTO) 7.8 %; NEUTROPHILS # (AUTO) 4.6 10^3/uL (1.5-6.6); NEUTROPHILS % (AUTO) 55.9 %; RED BLOOD COUNT 4.89 10^6/uL (4.70-6.10); RED CELL DISTRIBUTION WIDTH 12.1 % (12.0-15.0); UNCORRECTED WHITE BLOOD COUNT 8.2 x10^3/uL; WHITE BLOOD COUNT 8.2 x10^3/uL (4.8-10.8)
== END 2017-02-03 11:06 | disposition home or self-care (01) ==
LOC: LAB.WCP 11:05
PROVIDERS: ATTEND Family Medicine
DX: D73.5 Infarction of spleen (principal)
CPT/HCPCS: 36415; 85025

== ENCOUNTER 2017-04-20 10:13 | Outpatient (CLI) | payer MEDICARE, OTHER | END 2017-04-20 10:14 | disposition home or self-care (01) | LOC: SC 10:13 | PROVIDERS: ATTEND Nurse Practitioner Family | DX: G47.33 Obstructive sleep apnea (adult) (pediatric) (principal) | CPT/HCPCS: 99214; G0463; 99212 ==

== ENCOUNTER 2017-07-25 09:49 | Outpatient (CLI) | payer MEDICARE, OTHER | END 2017-07-25 09:50 | disposition home or self-care (01) | LOC: SC 09:49 | PROVIDERS: ATTEND Nurse Practitioner Family | DX: G47.33 Obstructive sleep apnea (adult) (pediatric) (principal) | CPT/HCPCS: 99214; G0463; 99212 ==

== ENCOUNTER 2017-12-01 15:57 | Observation (INO) | payer MEDICARE, OTHER ==
--- NOTE | 2017-12-01 16:30 | ED Physician Documentation ---
PD HPI FOCAL NEURO - Stated complaint Stated Complaint: TIRED - Chief complaint Chief Complaint: General - History obtained from History obtained from: Patient - History of Present Illness Timing - onset: Yesterday (77-year-old gentleman with history of hypertension and does drink alcohol daily started having slurred speech and difficulty driving but he is not sure which arm he was having trouble with yesterday also feels very fatigued. Today his noted a right facial droop. He had a headache last night which is now gone. No recent head injury or trauma or fall. He denies alcohol use today. He recently was diagnosed with new onset paroxysmal atrial fibrillation by [facility] screening.) Review of Systems Ten Systems: 10 systems reviewed and negative Throat: reports: Reviewed and negative Cardiac: reports: Reviewed and negative Respiratory: reports: Reviewed and negative PD PAST MEDICAL HISTORY - Past Medical History Cardiovascular: Hypertension Respiratory: Sleep apnea Endocrine/Autoimmune: None GI: Colon polyps : Benign prostate hypertrophy Psych: None Musculoskeletal: Osteoarthritis Derm: None - Past Surgical History Past Surgical History: Yes General: Colonoscopy HEENT: Cataracts, Tonsil/Adenoidectomy - Present Medications Home Medications: Ambulatory Orders Medication Instructions Recorded Confirmed Losartan [Cozaar] 100 mg PO DAILY 11/29/12 12/01/17 Multivitamin [Multivitamins] 1 each PO DAILY 01/17/13 12/01/17 Triamterene/Hydrochlorothiazid 1 tab PO DAILY 09/05/16 12/01/17 [Triamterene-Hctz 37.5-25 mg Cp] Aspirin [Aspirin EC] 81 mg PO DAILY 12/01/17 12/01/17 Metoprolol Succinate 100 mg PO DAILY 12/01/17 12/01/17 Tamsulosin [Flomax] 0.4 mg PO DAILY 12/01/17 12/01/17 - Allergies Allergies/Adverse Reactions: Allergies Allergy/AdvReac Type Severity Reaction Status Date / Time iodine Allergy Intermediate Hives Verified 01/26/17 13:23 IV DYES AdvReac Anaphylaxis Uncoded 01/26/17 13:23 - Social History Does the pt smoke?: No Smoking Status: Former smoker Does the pt drink ETOH?: Yes Does the pt have substance abuse?: No - Immunizations Immunizations are current?: Yes PD ED PE NORMAL - Vitals Vital signs reviewed: Yes - General General: Alert and oriented X 3, No acute distress - HEENT HEENT: PERRL, EOMI - Neck Neck: Supple, no meningeal sign, No bony TTP - Cardiac Cardiac: RRR, No murmur - Respiratory Respiratory: No respiratory distress, Clear bilaterally - Abdomen Abdomen: Non tender - Neuro Neuro: Alert and oriented X 3, fibre optic cable splicer 2-12 intact Eye Opening: Spontaneous Motor: Obeys Commands Verbal: Oriented GCS Score: 15 - Psych Psych: Normal mood, Normal affect NIHSS - Time Time: 16:18 - Level of Consciousness Level of consciousness: (0) Alert, Keenly responsive LOC Questions: (0) Answers both Q's correct LOC Commands: (0) Performs both correctly - Gaze Best Gaze: (0) Normal - Visual Visual: (0) No loss - Facial Palsy Facial Palsy: (2) Partial paralysis (Definitely paralysis that is incomplete of the right lower face sparing the forehead) - Motor Arms (both separate) Motor Arm (right): (0) No drift Motor Arm (left): (0) No drift - Motor Legs (both separate) Motor Leg (right): (0) No drift Motor Leg (left): (0) No drift - Limb Ataxia Limb Ataxia: (0) Absent - Sensory Sensory: (0) Normal - Best Language Best Language: (0) No aphasia - Dysarthria Dysarthria: (1) [id number] dysarthria - Extinction and Inattention (formally neg Extinction and inattention: (0) No abnormality - Total Score/Results Total Score/Result: 3 Results - Vitals Vitals: Vital Signs - 24 hr 12/01/17 12/01/17 16:09 17:08 Temperature 36.5 C Heart Rate 57 L 55 L Respiratory 14 24 Rate Blood Pressure 143/76 H 155/87 H O2 Saturation 96 96 Oxygen O2 Source Room air - EKG (time done) 1618 Rate: Rate (enter#) (61) Rhythm: NSR [place]: Normal Intervals: Prolonged [place] QRS: Normal Ischemia: Normal ST segments Computer interpretation: Agree with computer - Labs Labs: Laboratory Tests 12/01/17 12/01/17 12/01/17 16:34 16:34 16:34 WBC 6.4 RBC 4.39 L Hgb 14.7 Hct 43.3 MCV 98.7 H MCH 33.4 H MCHC 33.9 RDW 12.0 Plt Count 161 MPV 8.9 Neut # (Auto) 3.9 Lymph # (Auto) 1.7 [place] # (Auto) 0.5 Eos # (Auto) 0.2 Baso # (Auto) 0.0 Absolute Nucleated RBC 0.00 Nucleated RBC % 0.1 PT 11.2 INR 1.0 Sodium 139 Potassium 3.4 L Chloride 103 Carbon Dioxide 30 Anion Gap 6.0 BUN 25 H Creatinine 1.1 Estimated GFR (MDRD) 65 L Glucose 166 H Calcium 8.4 L Magnesium 2.0 Total Bilirubin 0.9 AST 22 ALT 39 Alkaline Phosphatase 55 Total Protein 6.1 L Albumin 3.5 Globulin 2.6 Albumin/Globulin Ratio 1.3 Lipase 28 Ethyl Alcohol < 5.0 - Rads (name of study) CTH Radiology: EMP read contemporaneously (NORMAL) PD MEDICAL DECISION MAKING - ED course ED course: This is a 77-year-old gentleman who presents with acute stroke symptoms including right facial droop that spares the forehead and slight aphasia. Initial imaging of the head is normal. Spoke with Dr. Ventura for admission at 5: 12 PM. He started having symptoms yesterday so he is obviously not a TPA candidate. - Sepsis Event Vital Signs: Vital Signs - 24 hr 12/01/17 12/01/17 16:09 17:08 Temperature 36.5 C Heart Rate 57 L 55 L Respiratory 14 24 Rate Blood Pressure 143/76 H 155/87 H O2 Saturation 96 96 Oxygen O2 Source Room air Departure - Departure Disposition: ED Place in Observation Clinical Impression: CVA (cerebral vascular accident) Qualifiers: CVA mechanism: unspecified Qualified Code(s): I63.9 - Cerebral infarction, unspecified Condition: Serious Discharge Date/Time: 12/01/17 18:23
[2017-12-01 16:38] LABS: BASOPHILS % (AUTO) 0.7 %; EOSINOPHILS # (AUTO) 0.2 10^3/uL (0.0-0.7); EOSINOPHILS % (AUTO) 3.8 %; HGB - HEMOGLOBIN 14.7 g/dL (14.0-18.0); LYMPHOCYTES # (AUTO) 1.7 10^3/uL (1.5-3.5); LYMPHOCYTES % (AUTO) 26.4 %; MEAN CORPUSCULAR HEMOGLOBIN 33.4 pg (27.0-31.0); MEAN CORPUSCULAR HGB CONC 33.9 g/dL (32.0-36.0); MEAN CORPUSCULAR VOLUME 98.7 fL (80.0-94.0); MEAN PLATELET VOLUME 8.9 fL (7.4-11.4); MONOCYTES # (AUTO) 0.5 10^3/uL (0.0-1.0); MONOCYTES % (AUTO) 7.7 %; NEUTROPHILS # (AUTO) 3.9 10^3/uL (1.5-6.6); NEUTROPHILS % (AUTO) 61.4 %; PLT - PLATELET COUNT 161 10^3/uL (130-450); RED BLOOD COUNT 4.39 10^6/uL (4.70-6.10); WHITE BLOOD COUNT 6.4 x10^3/uL (4.8-10.8)
[2017-12-01 16:52] LABS: ALBUMIN 3.5 g/dL (3.2-5.5); ALBUMIN/GLOBULIN RATIO 1.3 (1.0-2.2); ALKALINE PHOSPHATASE 55 IU/L (42-121); ALT ALANINE AMINOTRANSFERASE 39 IU/L (10-60); AST ASPARTATE AMINOTRANSFERASE 22 IU/L (10-42); BILIRUBIN,TOTAL 0.9 mg/dL (0.2-1.0); BUN - BLOOD UREA NITROGEN 25 mg/dL (6-20); CALCIUM 8.4 mg/dL (8.5-10.3); CARBON DIOXIDE - CO2 30 mmol/L (21-32); CHLORIDE 103 mmol/L (101-111); CREATININE 1.1 mg/dL (0.6-1.2); GFR - MDRD 65 (>89); GLUCOSE 166 mg/dL (70-100); LIPASE 28 U/L (22-51); SODIUM 139 mmol/L (135-145); TOTAL PROTEIN 6.1 g/dL (6.7-8.2)
--- NOTE | 2017-12-01 17:09 | CT Report ---
Procedure Date: 12/01/2017 Accession Number: [id number] / [id number] Procedure: CT - Head W/O CPT Code: FULL RESULT: EXAM: CT HEAD EXAM DATE: 12/01/2017 04:44 PM. CLINICAL HISTORY: Stroke. Fatigue COMPARISON: None. TECHNIQUE: Multiaxial CT images were obtained from the foramen magnum to the vertex. Reformats: Coronal. IV contrast: None. In accordance with CT protocol optimization, one or more of the following dose reduction techniques were utilized for this exam: automated exposure control, adjustment of mA and/or KV based on patient size, or use of iterative reconstructive technique. FINDINGS: Parenchyma: No intraparenchymal hemorrhage. No evidence of mass, midline shift, or CT findings of infarction. Purdy-white differentiation is distinct. Extraaxial Spaces: Normal for age. No subdural or epidural collections identified. Ventricles: Normal in size and position. Sinuses and Orbits: Imaged paranasal sinuses, orbits, and mastoids show no significant abnormality. Bones: No evidence of fracture or calvarial defect. Other: None. IMPRESSION: No acute intracranial CT abnormality. [facility]
[2017-12-01] MEDS ORDERED: SODIUM CHLORIDE 0.9% 1,000 ML IV ONE (17:10)
[2017-12-01] MEDS ORDERED: ASPIRIN CHEW 81 MG TABLET PO STA (17:10)
[2017-12-01] MEDS ORDERED: HYDROcod/ACETAM 5/325 MG TABLET PO PRN (17:16)
[2017-12-01] MEDS ORDERED: PROCHLORPERAZINE 10 MG/2 ML VIAL IVP PRN (17:16)
[2017-12-01] MEDS ORDERED: PROMETHAZINE 25 MG/1 ML VIAL IM PRN (17:16)
[2017-12-01] MEDS ORDERED: HYDROcod/ACETAM 10 MG/325 MG TABLET PO PRN (17:16)
[2017-12-01] MEDS ORDERED: ONDANSETRON 4 MG/2 ML VIAL IVP PRN (17:16)
[2017-12-01] MEDS ORDERED: ACETAMINOPHEN 325 MG TABLET PO PRN (17:16)
[2017-12-01] MEDS ORDERED: ZOLPIDEM 5 MG TABLET PO PRN (17:16)
[2017-12-01 17:28] LABS: PT - PROTHROMBIN TIME 11.2 secs (9.9-12.6)
--- NOTE | 2017-12-01 17:28 | HISTORY & PHYSICAL EXAMINATION ---
Chief Complaint - Chief Complaint Chief Complaint: Right facial droop and difficulties with speech History of Present Illness - Admitted From Admitted From:: Emergency department - History Obtained From Records Reviewed: Yes History obtained from: Patient and patient's Exam Limitations: Patient has mild aphasia - History of Present Illness HPI Comment/Other: Patient is a 77-year-old gentleman with a past medical history significant for obstructive sleep apnea on CPAP, hypertension, BPH, bilateral cataracts and recent diagnosis of atrial fibrillation who presents to the emergency department with a chief complaint of right facial droop and aphasia. According to the patient he was in his normal state of health until he was driving back from a picnic yesterday in his car. He states that while driving back he felt listless but denies having had any weakness or neurologic deficits at that time. He states that he was able to drive home and go on with the rest of his day. He states that his did not notice anything abnormal with his speech or any weakness or facial droop. The patient states that he woke up this morning and drove his to the hospital earlier in the day and then took a nap. He states that this afternoon his noticed that he had a right facial droop and at that time he had a similar feeling to what he had when he was driving back in his car. He states again he felt listless but this time his did notice the droop. The patient states at that time he also was having difficulty with his speech as he could not express what he wanted to say. He states that he rested and was hoping that this would resolve on its own but then later in the afternoon he states that he received a phone call from [employer] who had performed testing on him earlier this week and was told he has atrial fibrillation. He states that this concerned him as he was having some symptoms now and was told that he had a new problem so he came to the emergency department. He states that it had been at least a couple of hours since his symptoms had started once he arrived in the emergency department. It was also unclear whether the patient had had these ongoing symptoms since yesterday when he initially had a similar feeling or if these had come on and then off later and then come on again. The patient denies any headache, blurred vision, runny nose, sore throat, nasal congestion, difficulty swallowing, fevers, chills, cough, chest pain, shortness of air, orthopnea, PND, increased lower extremity swelling, nominal pain, nausea , vomiting, diarrhea, constipation, increased lower extremity swelling, joint pain, muscle aches, back pain, neck stiffness, recent unintentional weight loss , changes in his appetite, skin rash, hair loss, polyuria, polydipsia, increased urinary urgency, frequency or dysuria. On presentation to the emergency department the patient was afebrile he was slightly bradycardic with a heart rate of 57 and mildly hypertensive but was not in any respiratory distress. On initial examination by the emergency room physician he was noted to have a significant right facial droop and expressive aphasia. By the time I was able to see him in the emergency department his facial droop was very mild and so was his aphasia. It appears that the symptoms were resolving during the time he spent in the emergency department. The patient did undergo a CT of his head which showed no acute process. The patient also underwent an EKG which showed a normal sinus rhythm. Given the patient's symptoms he was thought to likely have a TIA and was placed in observation for further testing and management. We do not have MRI available this weekend therefore he will not be able to get an MRI. History - Past Medical History Cardiovascular: reports: Hypertension, Atrial fibrillation (Paroxysmal) Respiratory: reports: Sleep apnea Endocrine/Autoimmune: reports: None GI: reports: Colon polyps : reports: Benign prostate hypertrophy Psych: reports: None Musculoskeletal: reports: Osteoarthritis Derm: reports: None MRSA Hx?: No - Past Surgical History General: reports: Colonoscopy HEENT: reports: Cataracts, Tonsil/Adenoidectomy - Family & Social History Family History: Mother: Cancer (Liver cancer), Father: Diabetes, Type 2 Family History Comment/Other: Patient had one sister with mesothelioma Living arrangement: At home Living Situation: With spouse/s.o. Social History Notes: The patient has been living on [facility] for the last 18 years and lives at home with his . 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 The patient is an avid golfer. He has never had any children. The patient quit smoking in 1989 but previously smoked up to 2 packs a day for nearly 30 years. The patient does drink alcohol he admits to drinking 4-5 glasses of hard liquor a night. He states he has been told that he drinks too much but feels as though he is able to tolerate the drinking and is not impaired by it. He denies any illicit drug use. - POLST Patient has POLST: No POLST Status: Full Code Meds/Allgy - Home Medications Home Medications: Ambulatory Orders Medication Instructions Recorded Confirmed Losartan [Cozaar] 100 mg PO DAILY 11/29/12 01/26/17 Multivitamin [Multivitamins] 1 each PO DAILY 01/17/13 01/26/17 Triamterene/Hydrochlorothiazid 1 tab PO DAILY 09/05/16 01/26/17 [Triamterene-Hctz 37.5-25 mg Cp] Aspirin [Aspirin EC] 81 mg PO DAILY 12/01/17 12/01/17 Metoprolol Succinate 100 mg PO DAILY 12/01/17 12/01/17 Tamsulosin [Flomax] 0.4 mg PO DAILY 12/01/17 12/01/17 - Allergies Allergies/Adverse Reactions: Allergies Allergy/AdvReac Type Severity Reaction Status Date / Time iodine Allergy Intermediate Hives Verified 01/26/17 13:23 IV DYES AdvReac Anaphylaxis Uncoded 01/26/17 13:23 Review of Systems - Other Findings Other Findings: A comprehensive review of systems was performed the pertinent positives and negatives are stated above in the HPI and the remainder of the review of systems is negative. Exam - Vital Signs Reviewed Vital Signs: Yes Vital Signs: Vital Signs x48h Temp Pulse Resp BP Pulse Ox 12/01/17 17:08 55 L 24 155/87 H 96 12/01/17 16:09 36.5 C 57 L 14 143/76 H 96 - Physical Exam General Appearance: positive: No acute distress, Alert Eyes Bilateral: positive: Normal inspection, PERRL, EOMI, No lid inflammation, Conjunctivae nml, No scleral icterus ENT: positive: ENT inspection nml, Pharynx nml, Dry mucous membranes. negative : Purulent nasal drainage, Pharyngeal erythema, Oral lesions Neck: positive: Nml inspection, Thyroid nml, No JVD, Trachea midline. negative : Thyromegaly, Lymphadenopathy (R), Lymphadenopathy (L), Carotid bruit, Tracheal deviation Respiratory: positive: Chest non-tender, No respiratory distress, Breath sounds nml. negative: Wheezes, Rales, Rhonchi Cardiovascular: positive: Regular rate & rhythm, No murmur, No gallop Peripheral Pulses: positive: 2+ Abdomen: positive: Non-tender, No organomegaly, Nml bowel sounds, No distention. negative: Guarding, Rebound, Hepatomegaly Back: positive: Nml inspection. negative: CVA tenderness (R), CVA tenderness (L ) Skin: positive: Color nml, No rash, Warm, Dry. negative: Cyanosis, Diaphoresis , Pallor, Skin rash Extremities: positive: Non-tender, Full ROM, Nml appearance, No pedal edema Neurologic/Psychiatric: positive: Oriented x3, CN's nml (2-12), Sensation nml, Mood/affect nml, Facial droop (Right not involving forehead), Slurred/abnml speech (Mild aphasia) Conclusion/Plan - Problem List (1) TIA (transient ischemic attack) Conclusion/Plan: Patient initially had feeling of listlessness yesterday when driving his car but was able to continue to drive. Today he had a similar feeling at home and his noticed that he had a right facial droop and at that time was having difficulties with his speech as he could not express words. The patient then received a phone call from [employer] with whom he had had tests done and they found that he was in atrial fibrillation which then prompted him to come to the emergency department. In the emergency department the patient was found to have a right facial droop which was improving by the time that I saw him. He was also found to have mild aphasia which had also improved significantly by the time that I saw him. Likely the patient is having a TIA as the symptoms are improving. The patient did undergo a CT of his head which was negative. We do not have MRI available this weekend therefore he will not be able to get an MRI but we will place him in observation for CT angiogram, echocardiogram and neurochecks. Plan: Aspirin Lipitor CTA head and neck MRI brain cannot be preformed as there is no MRI available this weekend Echo Lipid profile HbA1C Tele Neurochecks PT eval Qualifiers: Transient cerebral ischemia type: unspecified Qualified Code(s): G45.9 - Transient cerebral ischemic attack, unspecified (2) Atrial fibrillation Conclusion/Plan: Patient was recently diagnosed with paroxysmal atrial fibrillation after having a Holter monitor. The patient is not currently on anticoagulation but does take metoprolol for rate control. The patient's heart rate is on the low side and EKG currently shows sinus rhythm. Given that the patient has had a new CVA his chads 2 score is 4 and he should be started on anticoagulation. Given that the stroke occurred within the last 24 hours he will need to follow-up with his primary care physician to start on anticoagulation within the next few weeks. Telemetry monitoring We will hold metoprolol for permissive hypertension Qualifiers: Atrial fibrillation type: paroxysmal Qualified Code(s): I48.0 - Paroxysmal atrial fibrillation (3) Hypertension Conclusion/Plan: Patient has a history of hypertension and is on multiple medications at home including metoprolol, Cozaar and triamterene/hydrochlorothiazide. On presentation to the emergency department the patients blood pressure is elevated this is likely due to an acute stroke that occurred yesterday. For now we will allow for permissive hypertension and hold all his antihypertensive medications. We will continue to monitor the patient's blood pressure Qualifiers: Hypertension type: essential hypertension Qualified Code(s): I10 - Essential (primary) hypertension (4) Alcohol abuse Conclusion/Plan: Patient counseled that he needs to cut down his drinking He does not appear to be in alcohol withdrawal We will monitor if patient does begin to show signs of withdrawal we will place him on alcohol withdrawal protocol (5) Hyperglycemia Conclusion/Plan: Patient has no history of diabetes but was hyperglycemic on presentation with a blood glucose of 166. We will check a hemoglobin A1c if it is elevated we will consider starting him on sliding scale insulin and consider starting him on metformin at discharge. (6) Hypokalemia Conclusion/Plan: Patient's potassium is 3.4 on presentation we will replace his potassium and continue to monitor. This is likely secondary to his use of hydrochlorothiazide (7) KELSEY on CPAP Conclusion/Plan: Patient be continued on his home CPAP machine (8) BPH (benign prostatic hyperplasia) Conclusion/Plan: Continue Flomax Stable Qualifiers: Lower urinary tract symptom presence: symptoms absent Qualified Code(s): N40.0 - Benign prostatic hyperplasia without lower urinary tract symptoms - Lab Results Lab results reviewed: Yes Fish Bones: 12/01/17 16:34 12/01/17 16:34 Other Lab Results: Laboratory Results WBC 6.4 x10^3/uL (4.8-10.8) 12/01/17 16:34 RBC 4.39 10^6/uL (4.70-6.10) L 12/01/17 16:34 Hgb 14.7 g/dL (14.0-18.0) 12/01/17 16:34 Hct 43.3 % (42.0-52.0) 12/01/17 16:34 MCV 98.7 fL (80.0-94.0) H 12/01/17 16:34 MCH 33.4 pg (27.0-31.0) H 12/01/17 16:34 MCHC 33.9 g/dL (32.0-36.0) 12/01/17 16:34 RDW 12.0 % (12.0-15.0) 12/01/17 16:34 Plt Count 161 10^3/uL (130-450) 12/01/17 16:34 MPV 8.9 fL (7.4-11.4) 12/01/17 16:34 Neut # (Auto) 3.9 10^3/uL (1.5-6.6) 12/01/17 16:34 Lymph # (Auto) 1.7 10^3/uL (1.5-3.5) 12/01/17 16:34 [place] # (Auto) 0.5 10^3/uL (0.0-1.0) 12/01/17 16:34 Eos # (Auto) 0.2 10^3/uL (0.0-0.7) 12/01/17 16:34 Baso # (Auto) 0.0 10^3/uL (0.0-0.1) 12/01/17 16:34 Absolute Nucleated RBC 0.00 x10^3/uL 12/01/17 16:34 Nucleated RBC % 0.1 /100WBC 12/01/17 16:34 Sodium 139 mmol/L (135-145) 12/01/17 16:34 Potassium 3.4 mmol/L (3.5-5.0) L 12/01/17 16:34 Chloride 103 mmol/L (101-111) 12/01/17 16:34 Carbon Dioxide 30 mmol/L (21-32) 12/01/17 16:34 Anion Gap 6.0 (6-13) 12/01/17 16:34 BUN 25 mg/dL (6-20) H 12/01/17 16:34 Creatinine 1.1 mg/dL (0.6-1.2) 12/01/17 16:34 Estimated GFR (MDRD) 65 (>89) L 12/01/17 16:34 Glucose 166 mg/dL (70-100) H 12/01/17 16:34 Calcium 8.4 mg/dL (8.5-10.3) L 12/01/17 16:34 Magnesium 2.0 mg/dL (1.7-2.8) 12/01/17 16:34 Total Bilirubin 0.9 mg/dL (0.2-1.0) 12/01/17 16:34 AST 22 IU/L (10-42) 12/01/17 16:34 ALT 39 IU/L (10-60) 12/01/17 16:34 Alkaline Phosphatase 55 IU/L (42-121) 12/01/17 16:34 Total Protein 6.1 g/dL (6.7-8.2) L 12/01/17 16:34 Albumin 3.5 g/dL (3.2-5.5) 12/01/17 16:34 Globulin 2.6 g/dL (2.1-4.2) 12/01/17 16:34 Albumin/Globulin Ratio 1.3 (1.0-2.2) 12/01/17 16:34 Lipase 28 U/L (22-51) 12/01/17 16:34 Ethyl Alcohol < 5.0 mg/dL 12/01/17 16:34 - Diagnostic Imaging Results Diagnostic Imaging Results: positive: Final report reviewed Diagnostic Imaging Results Comments: CT head Impression: No acute intracranial CT abnormality - EKG Results EKG Interpreted Independently: Yes EKG Findings: Normal sinus rhythm no ST elevations no ischemic change Core Measures - Anticipated LOS I expect patient to be DC'd or transferred within 96 hours.: Yes - DVT/VTE - Prophylaxis VTE/DVT Device ordered at admit?: Yes
[2017-12-01] MEDS ORDERED: diphenhydrAMINE INJ 50 MG/ML VIAL IVP SCH (20:00)
[2017-12-01] MEDS: SODIUM CHLORIDE 0.9% 1,000 ML IV SCH (20:00)
[2017-12-01] MEDS ORDERED: methylPREDNISolone SUCCINATE 125 MG/2 ML VIAL IVP SCH (20:00)
[2017-12-01] MEDS ORDERED: ATORVASTATIN 40 MG TABLET PO SCH (21:00)
[2017-12-01] MEDS: SODIUM CHLORIDE FLUSH 0.9% 10 ML SYRINGE IVP PRN (21:29)
[2017-12-01] MEDS ORDERED: IOPAMIDOL-300 100 ML VIAL ONE (21:36)
[2017-12-01] MEDS ORDERED: IOPAMIDOL-300 100 ML VIAL IVP ONE (21:57)
--- NOTE | 2017-12-01 22:36 | CT Report ---
Procedure Date: 12/01/2017 Accession Number: [id number] / [id number] Procedure: CT - Head Angio CPT Code: FULL RESULT: EXAM: CT ANGIOGRAM HEAD. CT SCAN OF THE HEAD WITHOUT AND WITH CONTRAST. EXAM DATE: 12/01/2017 10:07 PM CLINICAL HISTORY: Right facial droop and aphasia. COMPARISON: HEAD W/O 12/01/2017. TECHNIQUE: - CT Scan Head: Using a multidetector scanner, axial images were acquired from the foramen magnum to the skull vertex prior to and following contrast administration. - CT Angiogram: Using a multidetector scanner, high-resolution axial images were acquired from the skull base through vertex following rapid infusion of intravenous contrast. Reformats: Multiplanar MIP reformats were reconstructed. Nascet criteria used for stenosis measurement. IV Contrast: ISOVUE 300 80mL. In accordance with CT protocol optimization, one or more of the following dose reduction techniques were utilized for this exam: automated exposure control, adjustment of mA and/or KV based on patient size, or use of iterative reconstructive technique. FINDINGS: On the noncontrast brain CT images, no acute interval change has occurred. In particular, there is no evidence of acute intracranial hemorrhage or obvious interval loss of diaz-white matter differentiation. No abnormal brain parenchymal enhancement is appreciated. There is normal contrast opacification in the dural venous sinuses. 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 The right ICA is patent from the superior cervical to the supraclinoid portions. Calcified plaque is present throughout the carotid siphon with approximately 50% stenosis of the supraclinoid segment. The bilateral A1, M1, and M2 segments are patent. The anterior cerebral artery is triplicated and no aneurysm is seen in the expected location of the anterior communicating artery. In the posterior circulation, the bilateral V4 segments are patent. There is a right AICA/PICA variant. The basilar artery is patent throughout its course to the terminus. There is normal contrast opacification in the superior cerebellar arteries. The right P1 and P2 segments are patent. The right posterior communicating artery is not seen. The left P2 segment is patent with origin of the posterior cerebral artery. However, the origin of the left posterior cerebral artery appears occluded for an approximately 1 cm length (image 72, series 11), age indeterminate. IMPRESSION: 1. No obvious acute interval change since the brain CT from earlier today. No evidence of acute intracranial hemorrhage or acute loss of diaz-white matter differentiation. 2. Patent dural venous sinuses. 3. 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 4. 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 RADIA The above findings were discussed with Dr. Pizarro by Dr. Winifred Brown at 22:32 hrs on 12/01/17.
--- NOTE | 2017-12-01 22:42 | CT Report ---
Procedure Date: 12/01/2017 Accession Number: [id number] / [id number] Procedure: CT - Neck Angio CPT Code: FULL RESULT: EXAM: CT ANGIOGRAM NECK EXAM DATE: 12/01/2017 10:07 PM. CLINICAL HISTORY: Right facial droop and aphasia. COMPARISON: None. TECHNIQUE: Routine axial helical imaging was performed from the skull base through the aortic arch. Reconstructions: Routine multiplanar 3D MIP reconstructions. IV Contrast: ISOVUE 300 80mL. Evaluation of arterial stenosis is based on a NASCET method of measurement. In accordance with CT protocol optimization, one or more of the following dose reduction techniques were utilized for this exam: automated exposure control, adjustment of mA and/or KV based on patient size, or use of iterative reconstructive technique. FINDINGS: Right Carotid: The common, internal, and external carotid arteries are patent. Mild calcified plaque is present at the carotid bifurcation without hemodynamically significant stenosis. Left Carotid: The internal and external carotid arteries are patent. The internal carotid artery demonstrates decreased contrast enhancement compared to the contralateral side, related to distal occlusion. Faint contrast is noted at the carotid bifurcation with the remainder of the artery in the neck completely occluded and no string sign is seen, age indeterminate. Vertebrals: Calcified plaque is present at the origins of the bilateral vertebral arteries resulting in stenosis on the right measuring approximately 60% and stenosis on the left measuring approximately 50%. The left vertebral artery is slightly dominant. No hemodynamically significant stenosis is seen in their remaining cervical courses. Other: The visualized upper lungs are clear. The airway is patent. Mild to moderate degenerative changes are present through out the cervical spine. No acute abnormality is seen in the soft tissues of the neck. IMPRESSION: 1. 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 2. Right 60% and left 50% stenoses at the bilateral vertebral artery origins due to calcified plaque. RADIA
[2017-12-02] MEDS: SODIUM CHLORIDE FLUSH 0.9% 10 ML SYRINGE IVP SCH ×2 (00:53→09:19)
[2017-12-02 06:35] LABS: ALBUMIN 3.4 g/dL (3.2-5.5); ALBUMIN/GLOBULIN RATIO 1.4 (1.0-2.2); BILIRUBIN,TOTAL 0.9 mg/dL (0.2-1.0); CALCIUM 8.4 mg/dL (8.5-10.3); TOTAL PROTEIN 5.9 g/dL (6.7-8.2)
[2017-12-02 06:41] LABS: BASOPHILS % (AUTO) 0.3 %; HGB - HEMOGLOBIN 14.6 g/dL (14.0-18.0); LYMPHOCYTES # (AUTO) 0.6 10^3/uL (1.5-3.5); LYMPHOCYTES % (AUTO) 8.5 %; MEAN CORPUSCULAR HEMOGLOBIN 33.7 pg (27.0-31.0); MEAN CORPUSCULAR HGB CONC 34.7 g/dL (32.0-36.0); MEAN CORPUSCULAR VOLUME 97.2 fL (80.0-94.0); MEAN PLATELET VOLUME 9.6 fL (7.4-11.4); MONOCYTES # (AUTO) 0.1 10^3/uL (0.0-1.0); MONOCYTES % (AUTO) 0.8 %; NEUTROPHILS # (AUTO) 6.9 10^3/uL (1.5-6.6); NEUTROPHILS % (AUTO) 90.4 %; PLT - PLATELET COUNT 162 10^3/uL (130-450); RED BLOOD COUNT 4.35 10^6/uL (4.70-6.10); RED CELL DISTRIBUTION WIDTH 11.9 % (12.0-15.0); WHITE BLOOD COUNT 7.7 x10^3/uL (4.8-10.8)
[2017-12-02] MEDS: SODIUM CHLORIDE 0.9% 1,000 ML IV SCH ×2 (06:58→14:58)
[2017-12-02] MEDS: SODIUM CHLORIDE FLUSH 0.9% 10 ML SYRINGE IVP PRN (06:59)
[2017-12-02] MEDS ORDERED: PANTOPRAZOLE 40 MG TABLET PO SCH (07:00)
[2017-12-02 07:06] LABS: CHOL/HDL RATIO 1.9 (<5.0); CHOLESTEROL 120 mg/dL; HDL CHOLESTEROL 62 mg/dL
[2017-12-02 07:32] LABS: LDL CHOLESTEROL,DIRECT 52 mg/dL; LDLD/HDL RATIO 0.8 (<3.6)
[2017-12-02 07:35] LABS: HB2 TOTAL 15.9 g/dL; HEMOGLOBIN A1C 0.52 g/dL; HEMOGLOBIN A1C % 5.1 % (4.6-6.2)
[2017-12-02] MEDS ORDERED: TAMSULOSIN 0.4 MG CAPSULE PO SCH (09:00)
[2017-12-02] MEDS ORDERED: ASPIRIN EC 81 MG TABLET PO SCH (09:00)
[2017-12-02] MEDS ORDERED: POLYETHYLENE GLYCOL 3350 17 GM PACKET PO SCH (09:00)
--- NOTE | 2017-12-02 15:01 | Discharge Plan ---
Discharge Plan Disposition: 01 Home, Self Care Condition: Fair Prescriptions: Atorvastatin [Lipitor] 80 mg PO QPM #30 tablet Diet: Cardiac Activity Restrictions: Activity as Tolerated Shower Restrictions: No Driving Restrictions: No Weight Bearing: Full Weight Additional Instructions or Follow Up instructions: You presented to our emergency department with a right facial droop and expressive aphasia. These symptoms have persisted over the course of the last 24 hours and it appears that you have had a mild stroke. 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 These findings were discussed with a neurologist from [facility] who said that there was no intervention at this time and that the best course would be to treat with aspirin and Lipitor. You also need to start on a blood thinner for anticoagulation when you next see your primary care physician hopefully in the next few days. This will need to be started because you were found to have atrial fibrillation on your recent testing. While you were here you did get an echocardiogram which was normal. Please follow-up closely with your primary care physician and return to the emergency department if your symptoms worsen. No Smoking: If you smoke, Please STOP! Call for help. Follow-up with: Christopher Motta MD [Primary Care Provider] -
--- NOTE | 2017-12-02 15:10 | DISCHARGE SUMMARY ---
Discharge Summary Admit Date: 12/01/17 Discharge Date: 12/02/17 Discharging Provider: Aleksey Ventura MD Primary Care Provider: Jorge Motta MD Code Status: Attempt Resuscitation Condition at Discharge: Fair Discharge Disposition: 01 Home, Self Care - DIAGNOSES Admission Diagnoses: 1. Transient ischemic attack 2. Atrial fibrillation 3. Hypertension 4. Alcohol abuse 5. Hyperglycemia 6. Hypokalemia 7. Obstructive sleep apnea on CPAP 8. BPH Discharge Diagnoses with Status of Each Condition: 1. Cerebrovascular accident: Stable 2. 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 Paroxysmal atrial fibrillation: Stable 5. Hypertension: Stable 6. Alcohol abuse: Stable 7. Hyperglycemia: Stable 8. Hypokalemia: Resolved 9. Obstructive sleep apnea on CPAP: Stable 10. BPH: Stable - HPI History of Present Illness: Patient is a 77-year-old gentleman with a past medical history significant for obstructive sleep apnea on CPAP, hypertension, BPH, bilateral cataracts and recent diagnosis of atrial fibrillation who presents to the emergency department with a chief complaint of right facial droop and aphasia. According to the patient he was in his normal state of health until he was driving back from a picnic yesterday in his car. He states that while driving back he felt listless but denies having had any weakness or neurologic deficits at that time. He states that he was able to drive home and go on with the rest of his day. He states that his did not notice anything abnormal with his speech or any weakness or facial droop. The patient states that he woke up this morning and drove his to the hospital earlier in the day and then took a nap. He states that this afternoon his noticed that he had a right facial droop and at that time he had a similar feeling to what he had when he was driving back in his car. He states again he felt listless but this time his did notice the droop. The patient states at that time he also was having difficulty with his speech as he could not express what he wanted to say. He states that he rested and was hoping that this would resolve on its own but then later in the afternoon he states that he received a phone call from [facility] who had performed testing on him earlier this week and was told he has atrial fibrillation. He states that this concerned him as he was having some symptoms now and was told that he had a new problem so he came to the emergency department. He states that it had been at least a couple of hours since his symptoms had started once he arrived in the emergency department. It was also unclear whether the patient had had these ongoing symptoms since yesterday when he initially had a similar feeling or if these had come on and then off later and then come on again. The patient denies any headache, blurred vision, runny nose, sore throat, nasal congestion, difficulty swallowing, fevers, chills, cough, chest pain, shortness of air, orthopnea, PND, increased lower extremity swelling, nominal pain, nausea , vomiting, diarrhea, constipation, increased lower extremity swelling, joint pain, muscle aches, back pain, neck stiffness, recent unintentional weight loss , changes in his appetite, skin rash, hair loss, polyuria, polydipsia, increased urinary urgency, frequency or dysuria. On presentation to the emergency department the patient was afebrile he was slightly bradycardic with a heart rate of 57 and mildly hypertensive but was not in any respiratory distress. On initial examination by the emergency room physician he was noted to have a significant right facial droop and expressive aphasia. By the time I was able to see him in the emergency department his facial droop was very mild and so was his aphasia. It appears that the symptoms were resolving during the time he spent in the emergency department. The patient did undergo a CT of his head which showed no acute process. The patient also underwent an EKG which showed a normal sinus rhythm. Given the patient's symptoms he was thought to likely have a TIA and was placed in observation for further testing and management. We do not have MRI available this weekend therefore he will not be able to get an MRI. - HOSPITAL COURSE Hospital Course: Patient was placed in observation overnight and underwent routine neuro checks and was placed on telemetry. The patient had persistent right facial droop and expressive aphasia although it improved significantly from the time but initially started it was still present 24 hours later therefore the patient has a CVA. The patient did not have any episodes of atrial fibrillation on telemetry however he was found to be in atrial fibrillation on recent testing according to him. The patient did undergo a CT angiogram of his head and neck which revealed that he has occlusion of the left ICA with reconstitution of contrast in the supraclinoid segment and occlusion of the left posterior cerebral artery which demonstrates origin from the left ICA. Dr. Pizarro spoke with neurology from [facility] who felt that these occlusions likely are chronic and have developed collateral arteries otherwise patient's symptoms would be much more significant. She advised to place the patient on aspirin and Lipitor and start the patient on anticoagulation for atrial fibrillation. She said however to wait at least 48 hours prior to starting anticoagulation given that he has had an acute stroke. The patient was given prescriptions for aspirin and Lipitor and will take these as an outpatient. The patient also underwent an echocardiogram which did not show any acute thrombus. The patient will follow up with his primary care physician within the next 2 days to be started on anticoagulation. The patient was in stable condition at the time of discharge. The patient's hemoglobin A1c was found to be 5.1 and his LDL was 52. We allowed for permissive hypertension during the hospitalization. - ALLERGIES Allergies/Adverse Reactions: Allergies Allergy/AdvReac Type Severity Reaction Status Date / Time iodine Allergy Intermediate Hives Verified 01/26/17 13:23 IV DYES AdvReac Anaphylaxis Uncoded 01/26/17 13:23 - MEDICATIONS Home Medications: Ambulatory Orders Medication Instructions Recorded Confirmed Losartan [Cozaar] 100 mg PO DAILY 11/29/12 12/01/17 Multivitamin [Multivitamins] 1 each PO DAILY 01/17/13 12/01/17 Triamterene/Hydrochlorothiazid 1 tab PO DAILY 09/05/16 12/01/17 [Triamterene-Hctz 37.5-25 mg Cp] Aspirin [Aspirin EC] 81 mg PO DAILY 12/01/17 12/01/17 Metoprolol Succinate 100 mg PO DAILY 12/01/17 12/01/17 Tamsulosin [Flomax] 0.4 mg PO DAILY 12/01/17 12/01/17 Atorvastatin [Lipitor] 80 mg PO QPM #30 tablet 12/02/17 - PHYSICAL EXAM AT DISCHARGE General Appearance: positive: No acute distress, Alert Eyes Bilateral: positive: Normal inspection, PERRL, EOMI, No lid inflammation, Conjunctivae nml, No scleral icterus ENT: positive: ENT inspection nml, Pharynx nml, No signs of dehydration. negative: Purulent nasal drainage, Pharyngeal erythema, Oral lesions Neck: positive: Nml inspection, Thyroid nml, No JVD, Trachea midline. negative : Thyromegaly, Lymphadenopathy (R), Lymphadenopathy (L), Stiff neck, Carotid bruit, Tracheal deviation Respiratory: positive: Chest non-tender, No respiratory distress, Breath sounds nml. negative: Wheezes, Rales, Rhonchi Cardiovascular: positive: Regular rate & rhythm, No murmur, No gallop Peripheral Pulses: positive: 2+ Abdomen: positive: Non-tender, No organomegaly, Nml bowel sounds, No distention. negative: Guarding, Rebound, Hepatomegaly Back: positive: Nml inspection. negative: CVA tenderness (R), CVA tenderness (L ) Skin: positive: Color nml, No rash, Warm. negative: Diaphoresis, Pallor, Skin rash Extremities: positive: Non-tender, Full ROM, Nml appearance, No pedal edema Neurologic/Psychiatric: positive: Oriented x3, CN's nml (2-12), Sensation nml, Mood/affect nml, Facial droop (Mild right facial droop), Slurred/abnml speech ( Mild expressive aphasia) - LABS Result Diagrams: 12/02/17 06:10 12/02/17 06:10 Other Lab Results: Laboratory Results WBC 7.7 x10^3/uL (4.8-10.8) 12/02/17 06:10 RBC 4.35 10^6/uL (4.70-6.10) L 12/02/17 06:10 Hgb 14.6 g/dL (14.0-18.0) 12/02/17 06:10 Hct 42.2 % (42.0-52.0) 12/02/17 06:10 MCV 97.2 fL (80.0-94.0) H 12/02/17 06:10 MCH 33.7 pg (27.0-31.0) H 12/02/17 06:10 MCHC 34.7 g/dL (32.0-36.0) 12/02/17 06:10 RDW 11.9 % (12.0-15.0) L 12/02/17 06:10 Plt Count 162 10^3/uL (130-450) 12/02/17 06:10 MPV 9.6 fL (7.4-11.4) 12/02/17 06:10 Neut # (Auto) 6.9 10^3/uL (1.5-6.6) H 12/02/17 06:10 Lymph # (Auto) 0.6 10^3/uL (1.5-3.5) L 12/02/17 06:10 Grainger # (Auto) 0.1 10^3/uL (0.0-1.0) 12/02/17 06:10 Eos # (Auto) 0.0 10^3/uL (0.0-0.7) 12/02/17 06:10 Baso # (Auto) 0.0 10^3/uL (0.0-0.1) 12/02/17 06:10 Absolute Nucleated RBC 0.00 x10^3/uL 12/02/17 06:10 Nucleated RBC % 0.0 /100WBC 12/02/17 06:10 PT 11.2 secs (9.9-12.6) 12/01/17 16:34 INR 1.0 (0.8-1.2) 12/01/17 16:34 Sodium 139 mmol/L (135-145) 12/02/17 06:10 Potassium 4.0 mmol/L (3.5-5.0) 12/02/17 06:10 Chloride 106 mmol/L (101-111) 12/02/17 06:10 Carbon Dioxide 27 mmol/L (21-32) 12/02/17 06:10 Anion Gap 6.0 (6-13) 12/02/17 06:10 BUN 20 mg/dL (6-20) 12/02/17 06:10 Creatinine 1.0 mg/dL (0.6-1.2) 12/02/17 06:10 Estimated GFR (MDRD) 72 (>89) L 12/02/17 06:10 Glucose 164 mg/dL (70-100) H 12/02/17 06:10 Glycated Hemoglobin 5.1 % (4.6-6.2) 12/02/17 06:18 Estim Average Glucose 100 (70-100) 12/02/17 06:18 Calcium 8.4 mg/dL (8.5-10.3) L 12/02/17 06:10 Magnesium 2.0 mg/dL (1.7-2.8) 12/01/17 16:34 Total Bilirubin 0.9 mg/dL (0.2-1.0) 12/02/17 06:10 AST 23 IU/L (10-42) 12/02/17 06:10 ALT 39 IU/L (10-60) 12/02/17 06:10 Alkaline Phosphatase 51 IU/L (42-121) 12/02/17 06:10 Total Protein 5.9 g/dL (6.7-8.2) L 12/02/17 06:10 Albumin 3.4 g/dL (3.2-5.5) 12/02/17 06:10 Globulin 2.5 g/dL (2.1-4.2) 12/02/17 06:10 Albumin/Globulin Ratio 1.4 (1.0-2.2) 12/02/17 06:10 Triglycerides 22 mg/dL (-149) 12/02/17 06:10 Cholesterol 120 mg/dL (-199) 12/02/17 06:10 LDL Cholesterol Direct 52 mg/dL (-129) 12/02/17 06:10 LDL Cholesterol, Calc Not Reportable 12/02/17 06:10 VLDL Cholesterol Not Reportable 12/02/17 06:10 HDL Cholesterol 62 mg/dL (60-) 12/02/17 06:10 LDL/HDL Ratio Not Reportable 12/02/17 06:10 dLDL/HDL Ratio 0.8 (<3.6) 12/02/17 06:10 Cholesterol/HDL Ratio 1.9 (<5.0) 12/02/17 06:10 Lipase 28 U/L (22-51) 12/01/17 16:34 Ethyl Alcohol < 5.0 mg/dL 12/01/17 16:34 - DIAGNOSTIC IMAGING Diagnostic Imaging Results: Final report reviewed Diagnostic Imaging Results Comments: EXAM: [id number] CT/HEADWO ([id number]) Procedure Date: 12/01/2017 Accession Number: [id number] / [id number] Procedure: CT - Head W/O CPT Code: FULL RESULT: EXAM: CT HEAD EXAM DATE: 12/01/2017 04:44 PM. CLINICAL HISTORY: Stroke. Fatigue COMPARISON: None. TECHNIQUE: Multiaxial CT images were obtained from the foramen magnum to the vertex. Reformats: Coronal. IV contrast: None. In accordance with CT protocol optimization, one or more of the following dose reduction techniques were utilized for this exam: automated exposure control, adjustment of mA and/or KV based on patient size, or use of iterative reconstructive technique. FINDINGS: Parenchyma: No intraparenchymal hemorrhage. No evidence of mass, midline shift, or CT findings of infarction. Purdy-white differentiation is distinct. Extraaxial Spaces: Normal for age. No subdural or epidural collections identified. Ventricles: Normal in size and position. Sinuses and Orbits: Imaged paranasal sinuses, orbits, and mastoids show no significant abnormality. Bones: No evidence of fracture or calvarial defect. Other: None. IMPRESSION: No acute intracranial CT abnormality. EXAM: [id number] CT/NECKANG ([id number]) Procedure Date: 12/01/2017 Accession Number: [id number] / [id number] Procedure: CT - Neck Angio CPT Code: FULL RESULT: EXAM: CT ANGIOGRAM NECK EXAM DATE: 12/01/2017 10:07 PM. CLINICAL HISTORY: Right facial droop and aphasia. COMPARISON: None. TECHNIQUE: Routine axial helical imaging was performed from the skull base through the aortic arch. Reconstructions: Routine multiplanar 3D MIP reconstructions. IV Contrast: ISOVUE 300 80mL. Evaluation of arterial stenosis is based on a NASCET method of measurement. In accordance with CT protocol optimization, one or more of the following dose reduction techniques were utilized for this exam: automated exposure control, adjustment of mA and/or KV based on patient size, or use of iterative reconstructive technique. FINDINGS: Right Carotid: The common, internal, and external carotid arteries are patent. Mild calcified plaque is present at the carotid bifurcation without hemodynamically significant stenosis. Left Carotid: The internal and external carotid arteries are patent. The internal carotid artery demonstrates decreased contrast enhancement compared to the contralateral side, related to distal occlusion. Faint contrast is noted at the carotid bifurcation with the remainder of the artery in the neck completely occluded and no string sign is seen, age indeterminate. Vertebrals: Calcified plaque is present at the origins of the bilateral vertebral arteries resulting in stenosis on the right measuring approximately 60% and stenosis on the left measuring approximately 50%. The left vertebral artery is slightly dominant. No hemodynamically significant stenosis is seen in their remaining cervical courses. Other: The visualized upper lungs are clear. The airway is patent. Mild to moderate degenerative changes are present through out the cervical spine. No acute abnormality is seen in the soft tissues of the neck. IMPRESSION: 1. 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 2. Right 60% and left 50% stenoses at the bilateral vertebral artery origins due to calcified plaque. EXAM: [id number] CT/HEADANG ([id number]) Procedure Date: 12/01/2017 Accession Number: [id number] / [id number] Procedure: CT - Head Angio CPT Code: FULL RESULT: EXAM: CT ANGIOGRAM HEAD. CT SCAN OF THE HEAD WITHOUT AND WITH CONTRAST. EXAM DATE: 12/01/2017 10:07 PM CLINICAL HISTORY: Right facial droop and aphasia. COMPARISON: HEAD W/O 12/01/2017. TECHNIQUE: - CT Scan Head: Using a multidetector scanner, axial images were acquired from the foramen magnum to the skull vertex prior to and following contrast administration. - CT Angiogram: Using a multidetector scanner, high-resolution axial images were acquired from the skull base through vertex following rapid infusion of intravenous contrast. Reformats: Multiplanar MIP reformats were reconstructed. Nascet criteria used for stenosis measurement. IV Contrast: ISOVUE 300 80mL. In accordance with CT protocol optimization, one or more of the following dose reduction techniques were utilized for this exam: automated exposure control, adjustment of mA and/or KV based on patient size, or use of iterative reconstructive technique. FINDINGS: On the noncontrast brain CT images, no acute interval change has occurred. In particular, there is no evidence of acute intracranial hemorrhage or obvious interval loss of purdy-white matter differentiation. No abnormal brain parenchymal enhancement is appreciated. There is normal contrast opacification in the dural venous sinuses. 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 The right ICA is patent from the superior cervical to the supraclinoid portions. Calcified plaque is present throughout the carotid siphon with approximately 50% stenosis of the supraclinoid segment. The bilateral A1, M1, and M2 segments are patent. The anterior cerebral artery is triplicated and no aneurysm is seen in the expected location of the anterior communicating artery. In the posterior circulation, the bilateral V4 segments are patent. There is a right AICA/PICA variant. The basilar artery is patent throughout its course to the terminus. There is normal contrast opacification in the superior cerebellar arteries. The right P1 and P2 segments are patent. The right posterior communicating artery is not seen. The left P2 segment is patent with origin of the posterior cerebral artery. However, the origin of the left posterior cerebral artery appears occluded for an approximately 1 cm length (image 72, series 11), age indeterminate. IMPRESSION: 1. No obvious acute interval change since the brain CT from earlier today. No evidence of acute intracranial hemorrhage or acute loss of purdy-white matter differentiation. 2. Patent dural venous sinuses. 3. 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 4. 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 - FOLLOW UP Follow Up: Patient presented with right facial droop and mild expressive aphasia which persisted through the hospitalization. The patient was found to have a CVA and his CT angiogram of the head and neck showed complete occlusion of the left ICA and occlusion of the left posterior cerebral artery. According to neurology at [facility] there is no role for any intervention at this point. They recommended aspirin and Lipitor. Given the patient's atrial fibrillation I also recommended anticoagulation however this needed to wait 48 hours after the stroke. The patient will follow up with his primary care physician to be started on anticoagulation as an outpatient. - TIME SPENT Time Spent in Discharge (Minutes): 45
[2017-12-02 15:28] VITALS: BP 149/70
== END 2017-12-02 16:22 | disposition home or self-care (01) ==
LOC: ED 15:57 → OBS 17:16
PROVIDERS: ADMIT Internal Medicine; ATTEND Internal Medicine
DX: I63.232 Cerebral infarction due to unspecified occlusion or stenosis of left carotid arteries (principal); I63.532 Cerebral infarction due to unspecified occlusion or stenosis of left posterior cerebral artery; R47.01 Aphasia; R29.810 Facial weakness; R29.703 NIHSS score 3; I10 Essential (primary) hypertension; E87.6 Hypokalemia; R73.9 Hyperglycemia, unspecified; I48.0 Paroxysmal atrial fibrillation; F10.10 Alcohol abuse, uncomplicated; G47.33 Obstructive sleep apnea (adult) (pediatric); N40.0 Benign prostatic hyperplasia without lower urinary tract symptoms; M19.90 Unspecified osteoarthritis, unspecified site; Z79.82 Long term (current) use of aspirin; Z87.891 Personal history of nicotine dependence
CPT/HCPCS: 36415; 70450; 70496; 70498; 80053; 80061; 83036; 83690; 83721; 83735; 85025; 85610; 93005; 93306; 96361; 96374; 96375; 99283; 99285; A9270; G0378; G0480; J1200; Q9967; 80320; 96360

== ENCOUNTER 2017-12-20 14:26 | Outpatient (CLI) | payer MEDICARE, OTHER ==
--- NOTE | 2017-12-21 10:57 | MRI Report ---
Procedure Date: 12/20/2017 Accession Number: [id number] / [id number] Procedure: MRI - Brain W/O CPT Code: FULL RESULT: EXAM: MRI BRAIN WITHOUT CONTRAST EXAM DATE: 12/20/2017 02:53 PM. CLINICAL HISTORY: 77-year-old with atrial fibrillation and concern for TIAs. Evaluate for intracranial pathology. COMPARISON: CTA head and neck 12/01/2017. TECHNIQUE: Multiplanar, multisequence T1-weighted and fluid-sensitive MR sequences of the brain were performed. Sequences optimized for routine evaluation. Other: None. IV Contrast: None. FINDINGS: Brain Volume: Normal for age. Parenchyma/Dura: No acute parenchymal hemorrhage, mass, or midline shift. There is an area of DWI signal hyperintensity seen involving the left retrolenticular internal capsule with no associated ADC signal hypodensity. There is T2/FLAIR signal hyperintensity. Finding likely represents T2 shine through of a now chronic infarct. There is small volume encephalomalacia of the left occipital lobe. There is mild bilateral areas of T2/FLAIR signal hyperintensity seen. There is no convincing evidence of restricted diffusion seen to suggest acute infarct. There is extensive susceptibility artifact seen within the deep diaz nuclei base of ganglia likely representing mineralization. Ventricles/Cisterns: Lateral ventricles and third ventricles appear prominent but appropriate for the extent of volume loss. No abnormal extra-axial fluid collection or hemorrhage. Orbits: Changes of bilateral lens replacement. Sella Turcica: The pituitary gland, cavernous sinuses, suprasellar cistern and optic chiasm are unremarkable. IAC: Symmetric and unremarkable. Vasculature: Normal signal flow void is seen in the major arterial structures at the skull base. Sinuses: No acute appearing sinus disease. Bones: No focal pathologic appearing marrow signal changes. Other: None. IMPRESSION: 1. No acute infarct, intracranial hemorrhage, mass, hydrocephalus, or midline shift. 2. There is a small chronic appearing infarct of the left retrolenticular internal capsule. 3. There are small volume encephalomalacia of the left occipital lobe. 4. Additional mild matter changes seen that while nonspecific, most likely represent sequelae of chronic small vessel ischemic disease. RADIA
== END 2017-12-20 14:27 | disposition home or self-care (01) ==
LOC: DI 14:26
PROVIDERS: ATTEND Family Medicine
DX: I48.91 Unspecified atrial fibrillation (principal); I63.9 Cerebral infarction, unspecified
CPT/HCPCS: 70551

== ENCOUNTER 2018-05-25 11:44 | Outpatient (CLI) | payer MEDICARE, OTHER ==
--- NOTE | 2018-05-25 12:44 | XRAY Report ---
Reason: CONTUSION OF THORAX, UNSPECIFIED, INITIAL ENCTR Procedure Date: 05/25/2018 Accession Number: [id number] / [id number] Procedure: XR - Ribs w/PA Chest RT CPT Code: FULL RESULT: EXAM: RIGHT RIB RADIOGRAPHY EXAM DATE: 05/25/2018 11:54 AM. CLINICAL HISTORY: Contusion of thorax, unspecified. Initial encounter. COMPARISON: None. TECHNIQUE: 1 view of the chest and 2 views of the ribs. FINDINGS: Bones: Normal. No fracture or bone lesion. Lungs: No focal opacities. No pneumothorax. No pleural effusions. Mediastinum: Heart and mediastinal contours are unremarkable. Other: None. IMPRESSION: No fracture is detected. RADIA
== END 2018-05-25 11:45 | disposition home or self-care (01) ==
LOC: DI 11:44
PROVIDERS: ATTEND Family Medicine
DX: S20.20XA Contusion of thorax, unspecified, initial encounter (principal)

== ENCOUNTER 2018-09-12 15:04 | Outpatient (CLI) | payer MEDICARE, OTHER ==
[2018-09-12 19:37] LABS: BASOPHILS # (AUTO) 0.1 10^3/uL (0.0-0.1); BASOPHILS % (AUTO) 0.8 %; EOSINOPHILS # (AUTO) 0.2 10^3/uL (0.0-0.7); EOSINOPHILS % (AUTO) 2.9 %; HGB - HEMOGLOBIN 14.9 g/dL (14.0-18.0); LYMPHOCYTES % (AUTO) 29.5 %; MEAN CORPUSCULAR HEMOGLOBIN 31.5 pg (27.0-31.0); MEAN CORPUSCULAR HGB CONC 33.7 g/dL (32.0-36.0); MEAN CORPUSCULAR VOLUME 93.3 fL (80.0-94.0); MEAN PLATELET VOLUME 10.1 fL (7.4-11.4); MONOCYTES # (AUTO) 0.5 10^3/uL (0.0-1.0); MONOCYTES % (AUTO) 7.2 %; NEUTROPHILS # (AUTO) 4.1 10^3/uL (1.5-6.6); NEUTROPHILS % (AUTO) 59.6 %; PLT - PLATELET COUNT 168 10^3/uL (130-450); RED BLOOD COUNT 4.74 10^6/uL (4.70-6.10); RED CELL DISTRIBUTION WIDTH 12.5 % (12.0-15.0); WHITE BLOOD COUNT 6.8 x10^3/uL (4.8-10.8)
[2018-09-12 20:21] LABS: ALBUMIN 4.3 g/dL (3.2-5.5); ALBUMIN/GLOBULIN RATIO 1.6 (1.0-2.2); ALKALINE PHOSPHATASE 66 IU/L (42-121); ALT ALANINE AMINOTRANSFERASE 23 IU/L (10-60); AST ASPARTATE AMINOTRANSFERASE 18 IU/L (10-42); BILIRUBIN,TOTAL 1.1 mg/dL (0.2-1.0); BUN - BLOOD UREA NITROGEN 21 mg/dL (6-20); CALCIUM 9.2 mg/dL (8.5-10.3); CARBON DIOXIDE - CO2 32 mmol/L (21-32); CHLORIDE 101 mmol/L (101-111); CREATININE 1.2 mg/dL (0.6-1.2); GFR - MDRD 59 (>89); GLUCOSE 100 mg/dL (70-100); SODIUM 143 mmol/L (135-145); URIC ACID 5.8 mg/dL (2.6-7.2)
[2018-09-12 21:06] LABS: CRP - C-REACTIVE PROTEIN < 1.0 mg/dL (0-1.0)
== END 2018-09-12 15:05 | disposition home or self-care (01) ==
LOC: LAB.WCP 15:04
PROVIDERS: ATTEND Family Medicine
DX: M79.89 Other specified soft tissue disorders (principal); I63.9 Cerebral infarction, unspecified; I48.91 Unspecified atrial fibrillation
CPT/HCPCS: 36415; 80053; 84443; 84550; 85025; 85651; 86140

== ENCOUNTER 2018-09-16 14:25 | Emergency (ER) | payer MEDICARE, OTHER ==
[2018-09-16 14:39] VITALS: BP 161/105
[2018-09-16] MEDS ORDERED: CLINDAMYCIN 150 MG CAPSULE PO STA (15:00)
--- NOTE | 2018-09-16 15:02 | ED Physician Documentation ---
PD HPI WOUND RECHECK - Stated complaint Stated Complaint: R NECK SWELLING-PX - Chief complaint Chief Complaint: Trauma Hd/Nk - Histroy obtained from History obtained from: Patient - History of Present Illness Location: Ear (5 days ago he had a dermatologic procedure done to the top of his ear at [facility]. Sounds like it was a small skin cancer removal. Last night he developed swelling of the entire ear and pain down into the right infra-auricular area. He thinks he had a low-grade fever. He does not require any pain medication. He was not on perioperative antibiotics.) Review of Systems Constitutional: denies: Fever, Chills Nose: denies: Rhinorrhea / runny nose, Congestion Cardiac: denies: Chest pain / pressure, Palpitations PD PAST MEDICAL HISTORY - Past Medical History Cardiovascular: Hypertension Respiratory: Sleep apnea Endocrine/Autoimmune: None GI: Colon polyps : Benign prostate hypertrophy Psych: None Musculoskeletal: Osteoarthritis Derm: None - Past Surgical History Past Surgical History: Yes General: Colonoscopy HEENT: Cataracts, Tonsil/Adenoidectomy - Present Medications Home Medications: Ambulatory Orders Medication Instructions Recorded Confirmed Losartan [Cozaar] 100 mg PO DAILY 11/29/12 09/16/18 Triamterene/Hydrochlorothiazid 1 tab PO DAILY 09/05/16 09/16/18 [Triamterene-Hctz 37.5-25 mg Cp] Aspirin [Aspirin EC] 81 mg PO DAILY 12/01/17 09/16/18 Metoprolol Succinate 100 mg PO DAILY 12/01/17 09/16/18 Tamsulosin [Flomax] 0.4 mg PO DAILY 12/01/17 09/16/18 Atorvastatin [Lipitor] 80 mg PO QPM #30 tablet 12/02/17 09/16/18 Clindamycin HCl [Clindamycin 300MG 300 mg PO Q6H #28 capsule 09/16/18 CAP] Rivaroxaban [Xarelto] 1 tab PO DAILY 09/16/18 09/16/18 - Allergies Allergies/Adverse Reactions: Allergies Allergy/AdvReac Type Severity Reaction Status Date / Time iodine Allergy Intermediate Hives Verified 09/16/18 14:39 IV DYES AdvReac Anaphylaxis Uncoded 09/16/18 14:39 - Social History Does the pt smoke?: No Smoking Status: Former smoker Does the pt drink ETOH?: Yes Does the pt have substance abuse?: No - Immunizations Immunizations are current?: Yes - POLST Patient has POLST: No POLST Status: Full Code PD ED PE NORMAL - Vitals Vital signs reviewed: Yes - General General: Alert and oriented X 3, No acute distress, Other (Some word finding difficulties due to prior stroke) - HEENT HEENT: Other (There is a small scabbed lesion on the top of the right ear from the procedure, the pinna and tragus are swollen and erythematous with mild swe lling down into the infra-auricular area and tenderness there.) - Neck Neck: Supple, no meningeal sign, No bony TTP - Neuro Neuro: Alert and oriented X 3, Normal speech Results - Vitals Vitals: Vital Signs - 24 hr 09/16/18 14:38 Temperature 37.4 C Heart Rate 96 Respiratory 18 Rate Blood Pressure 161/105 H O2 Saturation 99 Oxygen O2 Source Room air PD MEDICAL DECISION MAKING - ED course ED course: There is nothing to culture, he is placed on clindamycin noting that Bactrim is contraindicated given that he is on losartan. Close dermatologic follow-up was advised. Departure - Departure Disposition: 01 Home, Self Care Clinical Impression: Surgical wound infection Condition: Good Record reviewed to determine appropriate education?: Yes Instructions: ED Cellulitis Facial Prescriptions: Clindamycin HCl [Clindamycin 300MG CAP] 300 mg PO Q6H #28 capsule Comments: Follow-up with a shot polisher in 24 to 48 hours for recheck, return for new or worsening symptoms.
== END 2018-09-16 15:22 | disposition home or self-care (01) ==
LOC: ED 14:25
DX: T81.49XA Infection following a procedure, other surgical site, initial encounter (principal); L08.9 Local infection of the skin and subcutaneous tissue, unspecified; I10 Essential (primary) hypertension; Z79.82 Long term (current) use of aspirin; Z87.891 Personal history of nicotine dependence
CPT/HCPCS: 99283; A9270

== ENCOUNTER 2018-10-23 09:03 | Outpatient (CLI) | payer MEDICARE, OTHER | END 2018-10-23 09:04 | disposition home or self-care (01) | LOC: SC 09:03 | PROVIDERS: ATTEND Nurse Practitioner Family | DX: G47.33 Obstructive sleep apnea (adult) (pediatric) (principal) | CPT/HCPCS: 99214; G0463; 99212 ==

== ENCOUNTER 2018-12-26 14:33 | Outpatient (CLI) | payer MEDICARE, OTHER ==
--- NOTE | 2018-12-26 15:45 | SLEEP CARE CONSULTATION ---
Information from patient questionnaire entered by Maxine Peterson. I have reviewed and concur with the information entered by Maxine Peterson. This document represents the service I personally performed and the decisions made by me, Umu Blackmon, RN, MSN, [employer]. History of Present Illness Previous diagnosis: Mild, Obstructive Sleep Apnea-Hypopnea Syndrome AHI: 12.1 Reason for CPAP/BiPAP follow up: other (two month ) Equipment type: CPAP Equipment obtained from: [facility] Mask style: Nasal Mask brand: Respironics HPI additional information: Patient transferred to [place] but has not needed to get supplies yet but they have established care. I ordered a mask refitting. The RT came to the house and showed him how to adjust his mask and to clean it more frequently. However, he does not clean it daily. He was instructed that he could use baby wipes but he has not obtained yet. The mask is fitting so well since his mask was adjusted and supplies updated that he did not need to pursue a CPAP pillow as mask leaks have significantly lessened. CPAP Compliance Data - Data Reviewed with Patient Average duration of nightly device use: 6.9 Compliance rate %: 96.7 (60 days) Current pressure setting (cmH2O): 11 Humidity settin Heated hose settin Average residual AHI: 1.4 Average large leak: 48 mins - Discussion Compliance data discussion: The mask leaks have significantly been reduced the past month since patient mask adjustment and updated of supplies. Subjective Patient concerns: reports: nasal congestion (occasional but not interferring with CPAP use ), dry mouth, nose, throat (dry mouth a couple times a week ). denies: aerophagia, mask discomfort, air blowing in eyes, mask leak noise, condensation in mask/hose, epistaxis Observed to snore while using device: No (single and sleeps alone) On therapy, patient: reports: sleeping better, awakening more refreshed, being more awake and alert during the day, more rested overall. denies: drowsiness while driving Initial [place] Sleepiness Scale score: 8 Current [place] Sleepiness Scale score: 3 Review of Systems Cardiovascular: reports: high blood pressure, leg or foot swelling (mild edema right ankle and foot and hand since stroke in 2018) Urinary: reports: frequency Neurological: reports: speech dysfunction (since stroke he has had more difficulty in searching for words ), gait or balance problems (since stroke he feels more clumsy) Ear/Nose/Throat: reports: tonsillectomy Allergies and Home Medications Known drug allergies: Yes (IVP dye) Home medication list reviewed: Yes Allergy and home medication list: Medication List Medication Name (generic/name brand) Strength & Dosage Triamterene-Hydrochlorothiazide 32.5-25mg tab one daily Cozaar (Losartan Potassium) 100mg tab one daily Metoprolol Succinate ER 100mg tab one daily Atorvastatin Calcium 80mg tab one every evening Xarelto (Rivaroxaban) 20mg tab one daily with largest meal Ocuvite Adult 50+ Oral Capsule Cap one daily Multivitamin As needed. Allergy List IVP Dye Physical Exam Blood Pressure: 140/70 Cuff size: regular Heart Rate: 56 O2 Saturation: 96 Height: 5 ft 8.5 in Weight (kg): 94.347 kg (lost 6 pounds) Body Mass Index: 31.1 BMI Classification: Class 1 Impression and Plan 1. Obstructive Sleep Apnea-Hypopnea Syndrome, mild, with good treatment compliance and good apnea control. On CPAP therapy, there is improved sleep quality and he continues to feel more rested overall. Since last seen, he has improved CPAP use about 30 % and use of 1.5 hours a night since putting CPAP mask back on after using the bathroom. He has noted increased restfulness during the day. Since patient does not regularly clean his equipment, I advised him of the importance keeping his equipment clean for general hygiene and better fitting mask. After some discussion he stated that he will get baby wipes as advised by the RT. I also discussed weekly cleaning of other equipment with rationale. If continued oral dryness, he is advised to lower the heated hose as the humidity is at the maximum. Since he is traveling out of the country early next year, he is advised to bring a spare mask by saving current mask as well have extra filters and a small amount of duct tape if hose needs repaired. I also showed him how he could take off the humidifier for smaller device and use saline nasal spray prior to CPAP. He is to test this process prior to leaving to ensure comfortable without use of humidifier. Since his flight is so long, he can check airline to see if he can use the CPAP in travel for sleep. He has a universal plug adaptor. His device is not due for update until next year when asked can be updated at next annual. Patient's apnea severity and rationale for treatment to reduce apnea, improve sleep quality and reduce cardiovascular and cerebrovascular events was reviewed. I also reviewed the benefit of consistent device use of CPAP for hypertension, cerebrovascular disease. Plan Continue nasal CPAP pressure at 11 cm H2O. Notify me if snoring with the mask or feeling that the pressure is too much or too little. Attempt to lose weight. Clean equipment regularly Update equipment regularly. Implement travel tips. Return for follow-up in one year, or sooner if concerns arise. I spent 100% of this 40 minute visit face to face with the patient with greater than 50% of this was spent time counseling the patient and coordination of care.
[2018-12-26 15:46] VITALS: BP 140/70
== END 2018-12-26 14:34 | disposition home or self-care (01) ==
LOC: SC 14:33
PROVIDERS: ATTEND Nurse Practitioner Family
DX: G47.33 Obstructive sleep apnea (adult) (pediatric) (principal)
CPT/HCPCS: 99215; G0463; 99212

== ENCOUNTER 2019-04-10 14:03 | Outpatient (CLI) | payer MEDICARE, OTHER ==
--- NOTE | 2019-04-11 10:39 | XRAY Report ---
Reason: ARTHRITIS RIGHT HIP Procedure Date: 04/10/2019 Accession Number: [id number] / [id number] Procedure: WCP - Hip 1 View RT CPT Code: Final Report FULL RESULT: EXAM: RIGHT HIP RADIOGRAPHY EXAM DATE: 04/10/2019 02:30 PM. CLINICAL HISTORY: ARTHRITIS RIGHT HIP. Chronic right hip pain. No known injury. COMPARISON: ABDOMEN/PELVIS W/O 01/26/2017 6:05 PM. TECHNIQUE: 2 views. FINDINGS: Bones: Normal. No fractures or bone lesion. Joints: Minimal bilateral hip joint space narrowing. No osteophyte formation. No subchondral cyst formation. Pubic symphysis and sacroiliac joints are unremarkable. Soft Tissues: Mild bilateral femoral artery atherosclerotic calcification. IMPRESSION: Mild bilateral hip chondromalacia. RADIA
== END 2019-04-10 23:59 | disposition home or self-care (01) ==
LOC: DI.WCP 14:03
PROVIDERS: ATTEND Family Medicine
DX: M94.252 Chondromalacia, left hip (principal); M94.251 Chondromalacia, right hip

== ENCOUNTER 2019-05-08 13:43 | Emergency (ER) | payer MEDICARE, OTHER ==
[2019-05-08 13:51] VITALS: BP 157/82
--- NOTE | 2019-05-08 13:54 | ED Physician Documentation ---
PD HPI SKIN - Stated complaint Stated Complaint: LT HAND WOUND - Chief complaint Chief Complaint: Wound - History obtained from History obtained from: Patient - History of Present Illness Timing - onset: How many days ago (3) Timing - duration: Days (3) Timing - details: Gradual onset Location: LUE (had excisional biopsy of lesion dorsum left hand on Monday. It appeared okay the first day, then mild redness at edges yesterday, and more edema/redness around it today. Some bruising noted as well.) Quality / character: Discolored (red), Swelling. No: Draining Associated symptoms: No: Fever, Myalgias Recently seen: Clinic (seen by Derm with excision lesion from dorsum hand.) Review of Systems Constitutional: denies: Fever, Chills Nose: denies: Rhinorrhea / runny nose, Congestion Throat: denies: Sore throat Respiratory: denies: Cough GI: denies: Nausea, Vomiting Neurologic: denies: Focal weakness, Numbness PD PAST MEDICAL HISTORY - Past Medical History Cardiovascular: Hypertension Respiratory: Sleep apnea Neuro: CVA Endocrine/Autoimmune: None GI: Colon polyps : Benign prostate hypertrophy HEENT: None Psych: None Musculoskeletal: Osteoarthritis Derm: None - Past Surgical History Past Surgical History: Yes General: Colonoscopy HEENT: Cataracts, Tonsil/Adenoidectomy - Present Medications Home Medications: Ambulatory Orders Medication Instructions Recorded Confirmed Losartan [Cozaar] 100 mg PO DAILY 11/29/12 09/16/18 Triamterene/Hydrochlorothiazid 1 tab PO DAILY 09/05/16 09/16/18 [Triamterene-Hctz 37.5-25 mg Cp] Aspirin [Aspirin EC] 81 mg PO DAILY 12/01/17 09/16/18 Metoprolol Succinate 100 mg PO DAILY 12/01/17 09/16/18 Tamsulosin [Flomax] 0.4 mg PO DAILY 12/01/17 09/16/18 Atorvastatin [Lipitor] 80 mg PO QPM #30 tablet 12/02/17 09/16/18 Clindamycin HCl [Clindamycin 300MG 300 mg PO Q6H #28 capsule 09/16/18 CAP] Rivaroxaban [Xarelto] 1 tab PO DAILY 09/16/18 09/16/18 Cephalexin [Keflex] 500 mg PO TID #20 capsule 05/08/19 Mupirocin 1 applic TP TID #15 g 05/08/19 - Allergies Allergies/Adverse Reactions: Allergies Allergy/AdvReac Type Severity Reaction Status Date / Time iodine Allergy Intermediate Hives Verified 05/08/19 13:46 IV DYES AdvReac Anaphylaxis Uncoded 05/08/19 13:46 - Social History Does the pt smoke?: No Smoking Status: Never smoker Does the pt drink ETOH?: Yes Does the pt have substance abuse?: No - Immunizations Immunizations are current?: Yes - POLST Patient has POLST: No POLST Status: Full Code PD ED PE NORMAL - Vitals Vital signs reviewed: Yes - General General: Alert and oriented X 3, No acute distress, Well developed/nourished - Derm Derm: Normal color, Warm and dry - Extremities Extremities: Other (dorsum left hand with 1 cm diameter round skin wound, partial thickness. It has surrounding redness and some bruising, with warmth proximal side of it. No drainage. ) Results - Vitals Vitals: Vital Signs - 24 hr 05/08/19 13:46 Temperature 36.5 C Heart Rate 57 L Respiratory 14 Rate Blood Pressure 157/82 H O2 Saturation 96 Oxygen O2 Source Room air PD MEDICAL DECISION MAKING - ED course Complexity details: considered differential (dorsum left hand with circular ex cisional biopsy site, with redness and inflammation/warmth. No purulence nor abscess. Inflammation from some bruising possible, but more concerning would be developing cellulitis. ), d/w patient Departure - Departure Disposition: 01 Home, Self Care Clinical Impression: Wound, surgical, infected Condition: Stable Record reviewed to determine appropriate education?: Yes Instructions: ED Infec Skin Cellulitis Follow-Up: Felipe Luna MD [Primary Care Provider] - Prescriptions: Cephalexin [Keflex] 500 mg PO TID #20 capsule Mupirocin 1 applic TP TID #15 g Comments: Cleanse the area gently with soap and water 2-3 times a day and apply a light layer of mupirocin ointment. You can have it covered to protect it but do not leave it covered all the time so does not get overly moist. Cephalexin antibiotic 3 times a day for a week for the infection. Recheck if not improving well over the next few days though. Discharge Date/Time: 05/08/19 14:32
[2019-05-08] MEDS ORDERED: cephALEXin 250 MG CAPSULE PO STA (14:20)
[2019-05-08] MEDS ORDERED: MUPIROCIN 2% OINT 1 GM TOP STA (14:20)
== END 2019-05-08 14:32 | disposition home or self-care (01) ==
LOC: ED 13:43
DX: T81.41XA Infection following a procedure, superficial incisional surgical site, initial encounter (principal); I10 Essential (primary) hypertension
CPT/HCPCS: 99282; 99283; A9270

== ENCOUNTER 2019-12-02 17:54 | Emergency (ER) | payer MEDICARE, OTHER ==
[2019-12-02 18:00] VITALS: BP 156/75
[2019-12-02] MEDS ORDERED: LIDOCAINE-EPINEPH-TETRACAINE 3 ML SYRINGE TOP STA (19:08)
--- NOTE | 2019-12-02 19:26 | ED Physician Documentation ---
PD HPI HEENT - Stated complaint Stated Complaint: NOSE BLEED - Chief complaint Chief Complaint: Laceration - History obtained from History obtained from: Patient - History of Present Illness Timing - onset: How many hours ago (1), Today Timing - duration: Hours (1) Timing - details: Abrupt onset, Still present (small leonardo shaving that does not want to stop bleeding.) Location: Other (chin) Associated symptoms: No: Facial swelling Similar symptoms before: Has not had sx before (bleeds easily on blood thinner, but not had facial bleeding like this.) Recently seen: Not recently seen Review of Systems Constitutional: denies: Fever, Chills Nose: denies: Rhinorrhea / runny nose, Congestion Throat: denies: Sore throat Respiratory: denies: Cough Skin: reports: Laceration (s) (small superficial lac just an hour ago.) Endocrine: reports: Easy bruising / bleeding PD PAST MEDICAL HISTORY - Past Medical History Cardiovascular: Hypertension Respiratory: Sleep apnea Neuro: CVA Endocrine/Autoimmune: None GI: Colon polyps : Benign prostate hypertrophy HEENT: None Psych: None Musculoskeletal: Osteoarthritis Derm: None - Past Surgical History Past Surgical History: Yes General: Colonoscopy HEENT: Cataracts, Tonsil/Adenoidectomy - Present Medications Home Medications: Ambulatory Orders Medication Instructions Recorded Confirmed Losartan [Cozaar] 100 mg PO DAILY 11/29/12 09/16/18 Triamterene/Hydrochlorothiazid 1 tab PO DAILY 09/05/16 09/16/18 [Triamterene-Hctz 37.5-25 mg Cp] Aspirin [Aspirin EC] 81 mg PO DAILY 12/01/17 09/16/18 Metoprolol Succinate 100 mg PO DAILY 12/01/17 09/16/18 Tamsulosin [Flomax] 0.4 mg PO DAILY 12/01/17 09/16/18 Atorvastatin [Lipitor] 80 mg PO QPM #30 tablet 12/02/17 09/16/18 Clindamycin HCl [Clindamycin 300MG 300 mg PO Q6H #28 capsule 09/16/18 CAP] Rivaroxaban [Xarelto] 1 tab PO DAILY 09/16/18 09/16/18 Cephalexin [Keflex] 500 mg PO TID #20 capsule 05/08/19 Mupirocin 1 applic TP TID #15 g 05/08/19 - Allergies Allergies/Adverse Reactions: Allergies Allergy/AdvReac Type Severity Reaction Status Date / Time iodine Allergy Intermediate Hives Verified 12/02/19 18:00 IV DYES AdvReac Anaphylaxis Uncoded 12/02/19 18:00 - Social History Does the pt smoke?: No Smoking Status: Never smoker Does the pt drink ETOH?: Yes Does the pt have substance abuse?: No - Immunizations Immunizations are current?: Yes - POLST Patient has POLST: No POLST Status: Full Code PD ED PE NORMAL - Vitals Vital signs reviewed: Yes - General General: Alert and oriented X 3, No acute distress, Well developed/nourished - HEENT HEENT: Other (right chin with small point of bleeding with dark spot c/w supe rficial face varicosity. It has ongoing oozing/drip of blood without direct pressure. ) - Neck Neck: Supple, no meningeal sign, No adenopathy - Derm Derm: Normal color, Warm and dry - Neuro Neuro: Alert and oriented X 3, No motor deficit, Normal speech Results - Vitals Vitals: Vital Signs - 24 hr 12/02/19 17:56 Temperature 36.4 C L Heart Rate 66 Respiratory 18 Rate Blood Pressure 156/75 H O2 Saturation 99 Oxygen O2 Source Room air PD MEDICAL DECISION MAKING - ED course Complexity details: considered differential (appears pencil point size vein varicosity that he nicked. I tried Monsels solution and direct pressure, then local injection with lido/epi and still bleeding. Cautery did not stop it completely, still oozing but not the drops now. However, not stopped. So I put 3 sutures purse-string fashion in it.), d/w patient ED course: Bleeding did stop with suture ligation. Covered then with Dermabond to coat it. He has appt with [facility] in 3 days, and that should be sufficient time for this, so can have suture out at that time (since was just to ligate the superficial vessel and not a wound closure per se). Departure - Departure Disposition: 01 Home, Self Care Clinical Impression: Facial laceration Qualifiers: Encounter type: initial encounter Qualified Code(s): S01.81XA - Laceration without foreign body of other part of head, initial encounter Condition: Stable Record reviewed to determine appropriate education?: Yes Instructions: ED Laceration Facial Sutr Tape Follow-Up: Felipe Luna MD [Primary Care Provider] - Comments: Keep the area clean and dry. You can have the sutures removed on when you are here at the [facility] clinic. Continue usual medications. Cover the area with a Band-Aid when you use any nasal CPAP to keep the stitches from being rubbed. Discharge Date/Time: 12/02/19 19:54
== END 2019-12-02 19:54 | disposition home or self-care (01) ==
LOC: ED 17:54
DX: S01.81XA Laceration without foreign body of other part of head, initial encounter (principal); W26.8XXA Contact with other sharp object(s), not elsewhere classified, initial encounter; Y93.E8 Activity, other personal hygiene; Z79.01 Long term (current) use of anticoagulants
CPT/HCPCS: 12013; 99282

== ENCOUNTER 2019-12-05 10:57 | Outpatient (CLI) | payer MEDICARE, OTHER ==
[2019-12-05 11:28] LABS: CHOL/HDL RATIO 1.5 (<5.0); CHOLESTEROL 86 mg/dL; HDL CHOLESTEROL 56 mg/dL; LDL CHOLESTEROL,CALCULATED 19 mg/dL; LDL/HDL RATIO 0.3 (<3.6); VLDL CHOLESTEROL 11 mg/dL
== END 2019-12-05 10:58 | disposition home or self-care (01) ==
LOC: LAB 10:57
PROVIDERS: ATTEND Internal Medicine Cardiovascular Disease
DX: Z79.899 Other long term (current) drug therapy (principal)
CPT/HCPCS: 36415; 80061; 83721

== ENCOUNTER 2020-07-20 13:14 | Outpatient (CLI) | payer MEDICARE, OTHER ==
--- NOTE | 2020-07-23 21:23 | SLEEP CARE CONSULTATION ---
Information from patient questionnaire entered by Maxine Peterson. I have reviewed and concur with the information entered by Maxine Peterson. This document represents the service I personally performed and the decisions made by me, Dillon Pizarro MD, [facility]. History of Present Illness Service Date and Time: 07/20/2020 1314 Previous diagnosis: Mild, Obstructive Sleep Apnea-Hypopnea Syndrome AHI: 12.1 (in 2014) Reason for follow up: first compliance after device update (6 months) Equipment type: CPAP Equipment obtained from: [employer] (getting equipment as needed) Mask style: Nasal Prior sleep studies: Yes Year and Where: 2014 - [facility] Sleep HPI additional information: HPI: Mr. Nguyen was diagnosed to have mild obstructive sleep apnea-hypopnea syndrome and returns today for follow up of CPAP therapy. The patient purchased the device from [facility] [employer] and was fitted with a nasal mask. He continues to use the device nightly and all through the night. The compliance report shows that he uses the device 88 nights out of the past 90 nights, averaging 7.8 hours a night. He complains of no particular problem with the device such as soreness on the face, dry nose, epistaxis, nasal congestion or headache. He thinks that the pressure of 11 cmH2O is comfortable. [place] Sleepiness Scale score is 2. The average residual AHI is 2.1; and average time in large leak per day is more than 3 hours a night. The patient says that he is not sure if he would like to keep using the CPAP. The one night he did not use the CPAP, he slept fine. CPAP Compliance Data - Data Reviewed with Patient Average duration of nightly device use: 7 hr 49 min Compliance rate %: 93.3 (90 days) Current pressure setting (cmH2O): 11 Humidity settin Heated hose settin Average residual AHI: 2.1 Average large leak: 3 hr 26 min Subjective Patient concerns: reports: dry mouth, nose, throat Current pressure setting perceived as: comfortable Initial [place] Sleepiness Scale score: 8 (in 2005) Current [place] Sleepiness Scale score: 2 Allergies and Home Medications Drug allergies reviewed: Yes Home medication list reviewed: Yes Review of Systems Weight loss over past 5 years: +20 Physical Exam Height: 5 ft 9 in Weight: 220 lb Weight change since last visit: +20 Body Mass Index: 32.5 BMI Classification: Obese Impression and Plan IMPRESSION: 1. Obstructive Sleep Apnea-Hypopnea Syndrome, mild with the patient continuing to do well on nasal CPAP therapy. He has excellent compliance but unclear clinical benefits. The current pressure appears effective and comfortable. The air leak is high, possibly from mouth breathing. To see if he continues to need to use the CPAP, I will order a home sleep apnea test (HSAT). PLAN: 1. Continue with CPAP set at 11 cm H2O. 2. Order a home sleep apnea test (HSAT) to see if he still has mild obstructive sleep apnea-hypopnea. 3. Return for a follow up after the test. Visit Type: In Office Time Spent with Patient (minutes): 15 Provider Statement: I spent 100% of the Face to Face Visit with the patient with greater than 50% spent counseling the patient and coordination of care.
== END 2020-07-20 13:15 | disposition home or self-care (01) ==
LOC: SC 13:14
PROVIDERS: ATTEND Internal Medicine Pulmonary Disease
DX: G47.33 Obstructive sleep apnea (adult) (pediatric) (principal); E66.9 Obesity, unspecified; Z68.32 Body mass index [BMI] 32.0-32.9, adult
CPT/HCPCS: 99212; G0463

== ENCOUNTER 2020-08-04 10:15 | Outpatient (CLI) | payer MEDICARE, OTHER | END 2020-08-04 10:16 | disposition home or self-care (01) | LOC: SC 10:15 | PROVIDERS: ATTEND Internal Medicine Pulmonary Disease | DX: G47.33 Obstructive sleep apnea (adult) (pediatric) (principal); R09.02 Hypoxemia; E66.9 Obesity, unspecified; Z68.30 Body mass index [BMI] 30.0-30.9, adult | CPT/HCPCS: G0399 ×2; 95806 ==

== ENCOUNTER 2020-08-17 13:12 | Outpatient (CLI) | payer MEDICARE, OTHER ==
--- NOTE | 2020-08-17 13:49 | SLEEP CARE CONSULTATION ---
Information from patient questionnaire entered by Andrew Basurto. I have reviewed and concur with the information entered by Andrew Basurto. This document represents the service I personally performed and the decisions made by me, Dillon Pizarro MD, [facility]. History of Present Illness Service Date and Time: 08/17/2020 1312 Initial [place] Sleepiness Scale score: 8 (in 2005) Current [place] Sleepiness Scale score: 2 Additional HPI information: HPI: Mr. Nguyen was diagnosed to have mild (AHI 12.1) obstructive sleep apnea- hypopnea syndrome in December 2014 and returned today to go over his recently performed home sleep apnea test (HSAT). The test shows mild obstructive sleep apnea-hypopnea with an AHI of 7.2 (used to be 11.2 in 2014). However, his baseline oxygen saturation was lower this time. His average oxygen saturation was 88%. Back in 2014 his oxygen saturation was below 90% in 35% of the total sleep time. He continues to use his CPAP at home except for last night. He said he slept fine last night. He does not know if he snores or not because he sleeps alone. Sleep Study - Results Type of Sleep Study: Home sleep study Prior sleep studies: Yes [facility] Allergies and Home Medications Drug allergies reviewed: Yes Home medication list reviewed: Yes Review of Systems Review of systems same as previous: Yes Physical Exam Height: 5 ft 9 in Weight: 209 lb Body Mass Index: 30.8 BMI Classification: Obese Impression and Plan IMPRESSION: 1. Obstructive Sleep Apnea-Hypopnea Syndrome, mild with the patient continuing to do well on nasal CPAP therapy. He has excellent compliance and significant clinical benefits. The current pressure of appears effective and comfortable. I told him that because he does not notice significant difference on vs off treatment, he may use his CPAP on as needed basis. 2. Hypoxia, worse than in 2015. This may be the normal progression of his lung function which is impaired by 75 pack-year of cigarette smoking (2.5 pack per day for 30 years before quitting 20 years ago). However, the pulse oximetry might have slipped during the test. I will follow it up in about 2 months. An in-laboratory polysomnography may be ordered to confirm the findings on the home sleep apnea test (HSAT). PLAN: 1. Continue CPAP therapy on as needed basis. 2. Return in two months for a follow up. Follow up recommended for: Weight management, Hypoxia Visit Type: In Office Time Spent with Patient (minutes): 15 Provider Statement: I spent 100% of the Face to Face Visit with the patient with greater than 50% spent counseling the patient and coordination of care.
== END 2020-08-17 13:13 | disposition home or self-care (01) ==
LOC: SC 13:12
PROVIDERS: ATTEND Internal Medicine Pulmonary Disease
DX: G47.33 Obstructive sleep apnea (adult) (pediatric) (principal); R09.02 Hypoxemia; E66.9 Obesity, unspecified; Z68.30 Body mass index [BMI] 30.0-30.9, adult
CPT/HCPCS: 99212; G0463

== ENCOUNTER 2020-10-26 11:30 | Outpatient (CLI) | payer MEDICARE, OTHER ==
--- NOTE | 2020-10-26 12:07 | SLEEP CARE CONSULTATION ---
Information from patient questionnaire entered by Maxine Peterson. I have reviewed and concur with the information entered by Maxine Peterson. This document represents the service I personally performed and the decisions made by me, Dillon Pizarro MD, [facility]. History of Present Illness Service Date and Time: 10/26/2020 1130 Previous diagnosis: Mild, Obstructive Sleep Apnea-Hypopnea Syndrome AHI: 12.1 (in 2014) Reason for follow up: other (2 month, recheck hypoxemia) Equipment type: CPAP Equipment obtained from: [employer] (getting equipment as needed) Mask style: Nasal Prior sleep studies: Yes Year and Where: 2014 - [facility] Sleep Type of Sleep Study: Polysomnography HPI additional information: HPI: Mr. Nguyen was diagnosed to have mild (AHI 12.1) obstructive sleep apnea- hypopnea syndrome in December 2014 and returned today to follow up on hypoxemia found on the home sleep apnea test (HSAT) 3 months ago. His baseline oxygen saturation was lower than in 2015 where his oxygen saturation was below 90% in 35% of the total sleep time. He has quit using CPAP altogether because he does not notice any benefit. He said he slept fine at night. Subjective Initial [place] Sleepiness Scale score: 8 (in 2005) Current [place] Sleepiness Scale score: 2 Allergies and Home Medications Drug allergies reviewed: Yes Home medication list reviewed: Yes Review of Systems Review of systems same as previous: Yes Physical Exam O2 Saturation: 97 Height: 5 ft 9 in Weight: 209 lb Body Mass Index: 30.8 BMI Classification: Obese Impression and Plan IMPRESSION: 1. Obstructive Sleep Apnea-Hypopnea Syndrome, mild with the patient deciding to not use CPAP. This is reasonable. 2. Hypoxia, worse than in 2015. This may be the normal progression of his lung function which is impaired by 75 pack-year of cigarette smoking (2.5 pack per day for 30 years before quitting 20 years ago). I recommended an in-laboratory polysomnography to confirm the finding but he does not wish to come for the study. He is agreeable to an overnight pulse oximetry. PLAN: 1. Overnight pulse oximetry by his durable medical supplier [facility] in [place]. 2. I will call him with the result. Visit Type: In Office Provider Statement: I spent 100% of the Face to Face Visit with the patient with greater than 50% spent counseling the patient and coordination of care.
== END 2020-10-26 11:31 | disposition home or self-care (01) ==
LOC: SC 11:30
PROVIDERS: ATTEND Internal Medicine Pulmonary Disease
DX: G47.33 Obstructive sleep apnea (adult) (pediatric) (principal); R09.02 Hypoxemia; E66.9 Obesity, unspecified; Z68.30 Body mass index [BMI] 30.0-30.9, adult
CPT/HCPCS: 99212; G0463

== ENCOUNTER 2020-12-03 09:41 | Outpatient (CLI) | payer MEDICARE, OTHER ==
[2020-12-03 12:06] LABS: BASOPHILS # (AUTO) 0.1 10^3/uL (0.0-0.1); BASOPHILS % (AUTO) 0.8 %; EOSINOPHILS # (AUTO) 0.2 10^3/uL (0.0-0.7); EOSINOPHILS % (AUTO) 3.4 %; HCT - HEMATOCRIT 46.1 % (42.0-52.0); HGB - HEMOGLOBIN 15.4 g/dL (14.0-18.0); LYMPHOCYTES # (AUTO) 2.2 10^3/uL (1.5-3.5); LYMPHOCYTES % (AUTO) 30.4 %; MEAN CORPUSCULAR HEMOGLOBIN 32.2 pg (27.0-31.0); MEAN CORPUSCULAR HGB CONC 33.4 g/dL (32.0-36.0); MEAN CORPUSCULAR VOLUME 96.4 fL (80.0-94.0); MONOCYTES # (AUTO) 0.5 10^3/uL (0.0-1.0); MONOCYTES % (AUTO) 7.4 %; NEUTROPHILS # (AUTO) 4.1 10^3/uL (1.5-6.6); NEUTROPHILS % (AUTO) 57.9 %; PLT - PLATELET COUNT 166 10^3/uL (130-450); RED BLOOD COUNT 4.78 10^6/uL (4.70-6.10); RED CELL DISTRIBUTION WIDTH 11.4 % (12.0-15.0); WHITE BLOOD COUNT 7.1 x10^3/uL (4.8-10.8)
[2020-12-03 12:16] LABS: ALBUMIN 4.1 g/dL (3.2-5.5); ALBUMIN/GLOBULIN RATIO 1.6 (1.0-2.2); ALKALINE PHOSPHATASE 66 IU/L (42-121); ALT ALANINE AMINOTRANSFERASE 26 IU/L (10-60); AST ASPARTATE AMINOTRANSFERASE 20 IU/L (10-42); BILIRUBIN,TOTAL 1.2 mg/dL (0.2-1.0); BUN - BLOOD UREA NITROGEN 21 mg/dL (6-20); CALCIUM 9.7 mg/dL (8.5-10.3); CARBON DIOXIDE - CO2 32 mmol/L (21-32); CHLORIDE 104 mmol/L (101-111); CHOL/HDL RATIO 1.7 (<5.0); CHOLESTEROL 96 mg/dL; CREATININE 1.1 mg/dL (0.6-1.2); GFR - MDRD 64 (>89); GLUCOSE 116 mg/dL (70-100); HDL CHOLESTEROL 55 mg/dL; LDL CHOLESTEROL,CALCULATED 29 mg/dL; LDL/HDL RATIO 0.5 (<3.6); SODIUM 146 mmol/L (135-145); TOTAL PROTEIN 6.6 g/dL (6.7-8.2); TRIGLYCERIDES 62 mg/dL; VLDL CHOLESTEROL 12 mg/dL
[2020-12-03 12:27] LABS: THYROID STIMULATING HORMONE 2.7 uIU/mL (0.34-5.60)
[2020-12-03 12:29] LABS: ESTIMATED AVERAGE GLUCOSE 108 mg/dL (70-100); HEMOGLOBIN A1c% 5.4 % (4.27-6.07)
== END 2020-12-03 23:59 | disposition home or self-care (01) ==
LOC: LAB.WCP 09:41
PROVIDERS: ATTEND Nurse Practitioner
DX: I10 Essential (primary) hypertension (principal); R73.03 Prediabetes; I48.91 Unspecified atrial fibrillation
CPT/HCPCS: 36415; 80053; 80061; 83036; 83721; 84443; 85025

== ENCOUNTER 2021-03-22 13:36 | Outpatient (CLI) | payer MEDICARE, OTHER ==
--- NOTE | 2021-03-22 19:47 | SLEEP CARE CONSULTATION ---
Information from patient questionnaire entered by Poonam Melgoza. I have reviewed and concur with the information entered by Poonam Melgoza. This document represents the service I personally performed and the decisions made by me, Dillon Pizarro MD, [facility]. History of Present Illness Service Date and Time: 03/22/2021 1336 Previous diagnosis: Mild, Obstructive Sleep Apnea-Hypopnea Syndrome AHI: 12.1 (in 2014) Reason for follow up: other (5 months, question about study recommendation) Equipment type: CPAP Equipment obtained from: [facility] (getting equipment as needed) Mask style: Nasal Prior sleep studies: Yes Year and Where: 2014 - [facility] Type of Sleep Study: Polysomnography HPI additional information: Mr. Nguyen was diagnosed to have mild (AHI 12.1) obstructive sleep apnea-hypopnea syndrome in December 2014 and returned today to follow up on hypoxemia found on the home sleep apnea test (HSAT) 3 months ago. His baseline oxygen saturation was lower than in 2015 where his oxygen saturation was below 90% in 35% of the total sleep time. He has quit using CPAP altogether because he does not notice any benefit. He said he slept fine at night. An overnight pulse oximetry was ordered and performed by his durable medical supplier [facility] in [place]. However, the durable medical supplier cannot download the data. Sleep Study - Results Type of Sleep Study: Polysomnography Prior sleep studies: Yes Year and Where: 2014 - [facility] Subjective Initial [place] Sleepiness Scale score: 8 (in 2005) Current [place] Sleepiness Scale score: 1 Allergies and Home Medications Drug allergies reviewed: Yes Home medication list reviewed: Yes Review of Systems Review of systems same as previous: Yes Physical Exam Height: 5 ft 9 in Weight: 209 lb Body Mass Index: 30.8 BMI Classification: Obese Impression and Plan IMPRESSION: 1. Obstructive Sleep Apnea-Hypopnea Syndrome, mild with the patient deciding to not use CPAP. This is reasonable. 2. Hypoxia, worse than in 2015. This may be the normal progression of his lung function which is impaired by 75 pack-year of cigarette smoking (2.5 pack per day for 30 years before quitting 20 years ago). I recommended an in-laboratory polysomnography to confirm the finding but he does not wish to come for the study. He is agreeable to another home sleep apnea test (HSAT) to confirm the hypoxemia so that home oxygen therapy can be prescribed (his previous HSAT was too old to be used to qualify him for the home oxygen therapy). PLAN: 1. Repeat home sleep apnea test (HSAT) 2. I will call him with the result. Follow up with Sleep Care in: 1-2 months Visit Type: In Office Time Spent with Patient (minutes): 15 Provider Statement: I spent 100% of the Face to Face Visit with the patient with greater than 50% spent counseling the patient and coordination of care.
== END 2021-03-22 13:37 | disposition home or self-care (01) ==
LOC: SC 13:36
PROVIDERS: ATTEND Internal Medicine Pulmonary Disease
DX: G47.33 Obstructive sleep apnea (adult) (pediatric) (principal)
CPT/HCPCS: 99212

== ENCOUNTER 2021-03-22 14:18 | Outpatient (CLI) | payer MEDICARE, OTHER | END 2021-03-22 14:19 | disposition home or self-care (01) | LOC: SC 14:18 | PROVIDERS: ATTEND Internal Medicine Pulmonary Disease | DX: G47.33 Obstructive sleep apnea (adult) (pediatric) (principal); R09.02 Hypoxemia | CPT/HCPCS: 99212; G0399; G0463; 95806 ==

== ENCOUNTER 2021-04-12 13:34 | Outpatient (CLI) | payer MEDICARE, OTHER ==
[2021-04-12 21:54] VITALS: BP 142/78
--- NOTE | 2021-04-12 21:54 | SLEEP CARE CONSULTATION ---
Information from patient questionnaire entered by Estela Leslie MA. I have reviewed and concur with the information entered by Estela Leslie MA. This document represents the service I personally performed and the decisions made by , Dillon Pizarro MD, [facility]. History of Present Illness Service Date and Time: 04/12/2021 1334 Initial [place] Sleepiness Scale score: 8 (in 2005) Current [place] Sleepiness Scale score: 1 (in 2020) Additional HPI information: HPI: Mr. Nguyen returns for a follow up of the home sleep apnea test (HSAT) recently performed to document nocturnal hypoxemia. The test shows mild obstructive sleep apnea-hypopnea, with an AHI of 13.6/hr and ciro SaO2 of 77%. During the study, the patient had 114 apneas (114 obstructive, 0 central, 0 mixed) and 16 hypopneas. The longest episode lasted 132.5 seconds. The respiratory events occurred more frequently during supine sleep (supine AHI was 42.0 and non-supine, 10.49). Hypoxemia was moderate with the lowest oxygen saturation of 77 % and 203.3 minutes with SaO2 under 90%. Baseline oxygen saturation was normal (Average oxygen saturation was 90%). Sleep Study - Results Type of Sleep Study: Polysomnography Prior sleep studies: Yes Year and Where: 2014 - [facility] Allergies and Home Medications Drug allergies reviewed: Yes Review of Systems Review of systems same as previous: Yes Physical Exam Vital signs obtained and entered by: FRAN Amaro Blood Pressure: 142/78 (left, white coat syndrome) Cuff size: wrist Heart Rate: 68 O2 Saturation: 97 (with mask) Height: 5 ft 9 in Weight: 210 lb (with coat) Body Mass Index: 31.0 BMI Classification: Obese Impression and Plan IMPRESSION: 1. Obstructive Sleep Apnea-Hypopnea Syndrome, mild, but associated with moderate hypoxemia. His baseline oxygen saturation is normal. Therefore, oxygen therapy is not indicated. The patient will go back and use his CPAP again. [facility] is now his supplier. PLAN: 1. Resume CPAP therapy 2. Return for follow up after one month. Counseling Topics: Weight loss health impact Follow up with Sleep Care in: 1-2 months Visit Type: In Office Time Spent with Patient (minutes): 15 Provider Statement: I spent 100% of the Face to Face Visit with the patient with greater than 50% spent counseling the patient and coordination of care.
== END 2021-04-12 13:35 | disposition home or self-care (01) ==
LOC: SC 13:34
PROVIDERS: ATTEND Internal Medicine Pulmonary Disease
DX: G47.33 Obstructive sleep apnea (adult) (pediatric) (principal); G47.36 Sleep related hypoventilation in conditions classified elsewhere
CPT/HCPCS: 99212; G0463

== ENCOUNTER 2021-05-10 13:44 | Outpatient (CLI) | payer MEDICARE, OTHER ==
--- NOTE | 2021-05-11 08:31 | SLEEP CARE CONSULTATION ---
Information from patient questionnaire entered by Estela Leslie MA. I have reviewed and concur with the information entered by Estela Leslie MA. This document represents the service I personally performed and the decisions made by me, Dillon Pizarro MD, [facility]. History of Present Illness Service Date and Time: 05/10/2021 1344 Previous diagnosis: Mild, Obstructive Sleep Apnea-Hypopnea Syndrome AHI: 12.1 (in 2014) Reason for follow up: one month Equipment type: CPAP Equipment obtained from: [facility] (getting equipment as needed) Mask style: Nasal Prior sleep studies: Yes Year and Where: 2014 - [facility] Type of Sleep Study: Polysomnography HPI additional information: HPI: Mr. Nguyen was diagnosed to have mild obstructive sleep apnea-hypopnea syndrome and returns today for follow up of CPAP therapy. He recently restarted the positive airway pressure therapy because his sleep study showed significant hypoxemia from the sleep-disordered breathing. He wears an jubqh-bgr-yzol nasal mask. He uses the device nightly and all through the night. The compliance report shows that he uses the device 27 nights out of the past 30 nights, averaging 7.3 hours a night. He complains of no particular problem with the device such as soreness on the face, dry nose, epistaxis, nasal congestion or headache. He thinks that the pressure of 11 cmH2O is comfortable. On the CPAP therapy he notices some improvement in his sleep quality. [place] Sleepiness Scale score is 1. The average residual AHI is 2.1; and average time in large leak per day is 2.9 minutes a night. Sleep Study - Results Type of Sleep Study: Polysomnography Prior sleep studies: Yes Year and Where: 2014 - [facility] CPAP Compliance Data - Data Reviewed with Patient Average duration of nightly device use: 7 HOURS 22 MINUTES Compliance rate %: 90 Current pressure setting (cmH2O): 11 Humidity settin Heated hose settin Average residual AHI: 2.1 Average large leak: 2 HOURS 53 MINUTES Subjective Initial [place] Sleepiness Scale score: 8 (in 2005) Current [place] Sleepiness Scale score: 1 (2020) Allergies and Home Medications Drug allergies reviewed: Yes Home medication list reviewed: Yes Review of Systems Review of systems same as previous: Yes Physical Exam Vital signs obtained and entered by: FRAN RODAS Blood Pressure: 132/75 (LEFT) Cuff size: wrist Heart Rate: 68 O2 Saturation: 98 (WITH MASK) Height: 5 ft 9 in Weight: 210 lb Body Mass Index: 31.0 BMI Classification: Obese Impression and Plan IMPRESSION: 1. Obstructive Sleep Apnea-Hypopnea Syndrome, mild with the patient continuing to do well on nasal CPAP therapy. He has excellent compliance and significant clinical benefits. The current pressure appears effective and comfortable. Overall, he is very satisfied with treatment and plans to continue with it long-term. Because of the excessive air leak, I will lower the pressure and recheck the residual AHI and air leak in one month. PLAN: 1. autoCPAP changed to 5 - 11 cm H2O. 2. Try to lose weight 3. Return in one month for follow up. Follow up with Sleep Care in: 1-2 months Time Spent with Patient (minutes): 15
[2021-05-11 08:32] VITALS: BP 132/75
== END 2021-05-10 13:45 | disposition home or self-care (01) ==
LOC: SC 13:44
PROVIDERS: ATTEND Internal Medicine Pulmonary Disease
DX: G47.33 Obstructive sleep apnea (adult) (pediatric) (principal); E66.9 Obesity, unspecified; Z68.31 Body mass index [BMI] 31.0-31.9, adult
CPT/HCPCS: 99202; G0463; 99212

== ENCOUNTER 2021-06-14 13:21 | Outpatient (CLI) | payer MEDICARE, OTHER ==
[2021-06-14 14:51] VITALS: BP 131/78
--- NOTE | 2021-06-14 14:51 | SLEEP CARE CONSULTATION ---
Information from patient questionnaire entered by Estela Leslie MA. I have reviewed and concur with the information entered by Estela Leslie MA. This document represents the service I personally performed and the decisions made by me, Dillon Pizarro MD, [facility]. History of Present Illness Service Date and Time: 06/14/2021 1321 Previous diagnosis: Mild, Obstructive Sleep Apnea-Hypopnea Syndrome AHI: 12.1 (in 2014) Reason for follow up: one month Equipment type: CPAP Equipment obtained from: [facility] (getting equipment as needed) Mask style: Nasal Prior sleep studies: Yes Year and Where: 2014 - [facility] Type of Sleep Study: Polysomnography HPI additional information: HPI: Mr. Nguyen was diagnosed to have mild obstructive sleep apnea-hypopnea syndrome and returns today for follow up of CPAP therapy after his pressure was supposed to be lowered from 11 to 5 11 cmH2O a month ago for high air leak but it did not happen. He recently restarted the positive airway pressure therapy because his sleep study showed significant hypoxemia from the sleep-disordered breathing. He wears an [id number]-jgvh nasal mask. He continues to use the device nightly and all through the night. The compliance report shows that he uses the device 30 nights out of the past 30 nights, averaging 6.1 hours a night. He complains of mouth dryness but does not know how to adjust the hum idity level. He thinks that the pressure of 10 cmH2O is comfortable. On the CPAP therapy he notices some improvement in his sleep quality. [place] Sleepiness Scale score is 1. The average residual AHI is 1; and average time in large leak per day is 2.9 minutes a night. Sleep Study - Results Type of Sleep Study: Polysomnography Prior sleep studies: Yes Year and Where: 2014 - [facility] CPAP Compliance Data - Data Reviewed with Patient Average duration of nightly device use: 7 HOURS 50 MINUTES Compliance rate %: 97.2 Current pressure setting (cmH2O): 11 Humidity settin Heated hose setting: HEATED TUBE Average residual AHI: 1.0 Average large leak: 25 MINUTES 29 SECONDS Subjective Initial [place] Sleepiness Scale score: 8 (in 2005) Current [place] Sleepiness Scale score: 1 (2021) Allergies and Home Medications Known drug allergies: No Drug allergies reviewed: Yes Home medication list reviewed: No Review of Systems Review of systems same as previous: Yes Physical Exam Vital signs obtained and entered by: FRAN RODAS Blood Pressure: 131/78 (PULSE 63, RIGHT) Cuff size: wrist Heart Rate: 79 O2 Saturation: 93 (WITH BIG DEEP BREATHS, PAPER MASK) Height: 5 ft 9 in Weight: 210 lb (W/O CLOTHES) Body Mass Index: 31.0 BMI Classification: Obese Impression and Plan IMPRESSION: 1. Obstructive Sleep Apnea-Hypopnea Syndrome, mild with the patient continuing to do well on nasal CPAP therapy. He has excellent compliance and significant clinical benefits. The current pressure appears effective and comfortable. Overall, he is very satisfied with treatment and plans to continue with it long-term. He thinks that the high air leak is due to his not changing mask often enough. He would like to leave the pressure at 10 cmH2O. I showed him how to adjust the humidity setting. PLAN: 1. CPAP left at 10 cm H2O. 2. Increase the heated humidifier setting if dry. 3. Return for follow up in a year or earlier if there is any problem. Follow up with Sleep Care in: 1 year Visit Type: In Office Time Spent with Patient (minutes): 15 Provider Statement: I spent 100% of the Face to Face Visit with the patient with greater than 50% spent counseling the patient and coordination of care.
== END 2021-06-14 13:22 | disposition home or self-care (01) ==
LOC: SC 13:21
PROVIDERS: ATTEND Internal Medicine Pulmonary Disease
DX: G47.33 Obstructive sleep apnea (adult) (pediatric) (principal); E66.9 Obesity, unspecified; Z68.31 Body mass index [BMI] 31.0-31.9, adult
CPT/HCPCS: 99212; G0463

== ENCOUNTER 2021-06-22 10:55 | Outpatient (CLI) | payer MEDICARE, OTHER ==
[2021-06-22 18:24] LABS: BASOPHILS # (AUTO) 0.1 10^3/uL (0.0-0.1); BASOPHILS % (AUTO) 0.9 %; EOSINOPHILS # (AUTO) 0.2 10^3/uL (0.0-0.7); EOSINOPHILS % (AUTO) 3.5 %; HCT - HEMATOCRIT 49.9 % (42.0-52.0); HGB - HEMOGLOBIN 16.7 g/dL (14.0-18.0); LYMPHOCYTES # (AUTO) 1.9 10^3/uL (1.5-3.5); LYMPHOCYTES % (AUTO) 29.2 %; MEAN CORPUSCULAR HEMOGLOBIN 31.9 pg (27.0-31.0); MEAN CORPUSCULAR HGB CONC 33.5 g/dL (32.0-36.0); MEAN CORPUSCULAR VOLUME 95.4 fL (80.0-94.0); MEAN PLATELET VOLUME 11.9 fL (7.4-11.4); MONOCYTES # (AUTO) 0.5 10^3/uL (0.0-1.0); MONOCYTES % (AUTO) 7.1 %; NEUTROPHILS # (AUTO) 3.8 10^3/uL (1.5-6.6); NEUTROPHILS % (AUTO) 59.1 %; PLT - PLATELET COUNT 196 10^3/uL (130-450); RED BLOOD COUNT 5.23 10^6/uL (4.70-6.10); RED CELL DISTRIBUTION WIDTH 11.7 % (12.0-15.0); WHITE BLOOD COUNT 6.4 x10^3/uL (4.8-10.8)
[2021-06-22 18:56] LABS: ALBUMIN 4.4 g/dL (3.2-5.5); ALBUMIN/GLOBULIN RATIO 1.7 (1.0-2.2); BILIRUBIN,TOTAL 1.2 mg/dL (0.2-1.0); CALCIUM 9.6 mg/dL (8.5-10.3); CREATININE 1.1 mg/dL (0.6-1.2); POTASSIUM 3.8 mmol/L (3.5-5.0)
== END 2021-06-22 10:56 | disposition home or self-care (01) ==
LOC: LAB.N 10:55
PROVIDERS: ATTEND Nurse Practitioner
DX: I10 Essential (primary) hypertension (principal)
CPT/HCPCS: 36415; 80053; 85025

== ENCOUNTER 2021-12-14 15:21 | Outpatient (CLI) | payer MEDICARE, OTHER ==
--- NOTE | 2021-12-14 18:11 | DEXA Report ---
PROCEDURE: Dexa Spine and/or Hip INDICATIONS: OSTEOPENIA TECHNIQUE: Dual energy x-ray absorptiometry (DXA) was performed on a Elyssafregori System. Regions measur ed are the AP Spine, femoral neck, and if needed forearm. COMPARISON: None. FINDINGS: Lumbar Spine: Bone Mineral Density 1.094 g/cm/cm,T score -1.1, osteopenia Left Hip: Bone Mineral Density 0.933 g/cm/cm,T score -1.2, osteopenia Left Femoral Neck: Bone Mineral Density 0.896 g/cm/cm, T score -1.3, osteopenia (T score greater or equal to -1.0: NORMAL) (T score from -1.1 to -2.4: OSTEOPENIA) (T score less than or equal to -2.5 to: OSTEOPOROSIS) Impression: Mild osteopenia. Patient is at increased risk for fracture. Patients with diagnosis of osteoporosis or osteopenia should have regular bone mineral density assess ment. For those eligible for Medicare, routine testing is allowed once every 2 years. Testing frequ ency can be increased for patients who have rapidly progressing disease or for those who are receivin g medical therapy to restore bone mass. Reviewed by: Girish Carrillo MD on 12/14/2021 6:10 PM PDT Approved by: Girish Carrillo MD on 12/14/2021 6:10 PM PDT Station ID: [id number]
== END 2021-12-14 15:22 | disposition home or self-care (01) ==
LOC: DI 15:21
PROVIDERS: ATTEND Nurse Practitioner
DX: Z13.820 Encounter for screening for osteoporosis (principal); Z51.81 Encounter for therapeutic drug level monitoring; M85.89 Other specified disorders of bone density and structure, multiple sites; Z79.899 Other long term (current) drug therapy

== ENCOUNTER 2022-07-04 12:57 | Outpatient (CLI) | payer MEDICARE, OTHER ==
--- NOTE | 2022-07-04 18:41 | SLEEP CARE CONSULTATION ---
Information from patient questionnaire entered by Mindy Strong. I have reviewed and concur with the information entered by Mindy Strong. This document represents the service I personally performed and the decisions made by me, Dillon Pizarro MD, [facility]. History of Present Illness Service Date and Time: 07/04/2022 1257 Previous diagnosis: Mild, Obstructive Sleep Apnea-Hypopnea Syndrome AHI: 12.1 (in 2014) Reason for follow up: annual (LAST SEEN ) Equipment type: CPAP (MACHUCA) Equipment obtained from: [facility] (getting equipment as needed) Mask style: Nasal Prior sleep studies: Yes Year and Where: 2014 - [facility] Type of Sleep Study: Polysomnography HPI additional information: Mr. Nguyen was diagnosed to have mild obstructive sleep apnea-hypopnea syndrome and returns today for follow up of CPAP therapy. [email or web address] is his durable medical supplier. He wears an [id number]-onw-adnq nasal mask. He continues to use the device nightly and all through the night. The compliance report shows that he uses the device 320 nights out of the past 365 nights, averaging 7.5 hours a night. There was a period he did not use it because he went to the [place]. He complains of mouth dryness but does not know how to a djust the humidity level. He thinks that the pressure of 11 cmH2O is comfortable. On the CPAP therapy he has not noticed much improvement. [place] Sleepiness Scale score is 2. The average residual AHI is 2.3; and average time in large leak per day is 3.3 hours a night. His weight went up 10 lbs over the past 8 years. Sleep Study - Results Type of Sleep Study: Polysomnography Prior sleep studies: Yes Year and Where: 2014 - [facility] CPAP Compliance Data - Data Reviewed with Patient Average duration of nightly device use: 7HRS 43MIN 54SEC Compliance rate %: 75 (57-14-3-8-) Current pressure setting (cmH2O): 11 Average residual AHI: 2.2 Subjective Initial [place] Sleepiness Scale score: 8 (in 2005) Current [place] Sleepiness Scale score: 2 (07/04/2022) Allergies and Home Medications Drug allergies reviewed: Yes Home medication list reviewed: Yes Allergy and home medication list: Allergies iodine Allergy (Intermediate, Verified 12/02/19 18:00) Hives IVP dye IV DYES Adverse Reaction (Uncoded 12/02/19 18:00) Anaphylaxis Review of Systems Review of systems same as previous: Yes Physical Exam Vital signs obtained and entered by: MINDY Austin MA Blood Pressure: 138/82 (LEFT ARM) Cuff size: regular Heart Rate: 75 O2 Saturation: 95 Height: 5 ft 9 in Weight: 213 lb 3.2 oz Body Mass Index: 31.4 BMI Classification: Obese Impression and Plan IMPRESSION: 1. Obstructive Sleep Apnea-Hypopnea Syndrome, mild with the patient continuing to do well on nasal CPAP therapy. He has good compliance and significant clinical benefits. The current pressure appears effective and comfortable. Because he slept fine without his CPAP during the vacation, he would like to know if he still needs to use it. His last in-laboratory polysomnography was 8 years ago. I will order another one. PLAN: 1. CPAP left at 11 cm H2O. 2. Repeat the in-laboratory polysomnography. 3. Return for follow up after the sleep study. Follow up with Sleep Care in: 1-2 months Plan: in-lab PSG Visit Type: In Office Time Spent with Patient (minutes): 15 Provider Statement: I spent 100% of the Face to Face Visit with the patient with greater than 50% spent counseling the patient and coordination of care.
[2022-07-04 18:42] VITALS: BP 138/82
== END 2022-07-04 12:58 | disposition home or self-care (01) ==
LOC: SC 12:57
PROVIDERS: ATTEND Internal Medicine Pulmonary Disease
DX: G47.33 Obstructive sleep apnea (adult) (pediatric) (principal); E66.9 Obesity, unspecified; Z68.31 Body mass index [BMI] 31.0-31.9, adult
CPT/HCPCS: 99212; G0463

== ENCOUNTER 2022-07-29 19:33 | Outpatient (CLI) | payer MEDICARE, OTHER | END 2022-07-29 19:34 | disposition home or self-care (01) | LOC: SC 19:33 | PROVIDERS: ATTEND Internal Medicine Pulmonary Disease | DX: R09.02 Hypoxemia (principal); G47.61 Periodic limb movement disorder; I48.91 Unspecified atrial fibrillation | CPT/HCPCS: 95810 ==

== ENCOUNTER 2022-08-08 11:31 | Outpatient (CLI) | payer MEDICARE, OTHER ==
[2022-08-08 11:59] VITALS: BP 158/100
--- NOTE | 2022-08-08 11:59 | SLEEP CARE CONSULTATION ---
Information from patient questionnaire entered by Mindy Strong. I have reviewed and concur with the information entered by Mindy Strong. This document represents the service I personally performed and the decisions made by me, Dillon Pizarro MD, [facility]. History of Present Illness Service Date and Time: 08/08/2022 1131 Initial [place] Sleepiness Scale score: 8 (in 2005) Current [place] Sleepiness Scale score: 5 (08/08/22) Additional HPI information: Mr. Nguyen returned for follow up of the sleep study he had on 07/29/2022. The polysomnography showed that the patient had reduced sleep efficiency due to several prolonged awakenings during the night. The sleep architecture was abnormal for sleep fragmentation and lack of slow wave sleep (N3). Respiratory monitoring showed no significant sleep disordered breathing (AHI = 2.8). There was mild hypoxia (ciro oxygen saturation of 83% and average oxygen saturation of 90%). The patient slept adequately in supine position (supine AHI = 1.1; non- supine = 3.25). Snore was light in intensity. There was severe periodic leg movement of sleep contributing to the sleep fragmentation. Cardiac rhythm was atrial fibrillation. No abnormal behavior (parasomnia) observed during the night. The patient was informed of these findings. I explained to him that the study did not show significant sleep-disordered breathing. He denies having restless leg syndrome. He is aware of the atrial fibrillation and is taking a blood thinner. Sleep Study - Results Type of Sleep Study: Polysomnography (COMPLETED 07/29/22) Prior sleep studies: Yes Year and Where: 2014 - [facility] Allergies and Home Medications Drug allergies reviewed: Yes Home medication list reviewed: Yes Allergy and home medication list: Allergies iodine Allergy (Intermediate, Verified 07/04/22 13:07) Hives IVP dye IV DYES Adverse Reaction (Uncoded 07/04/22 13:07) Anaphylaxis Review of Systems Review of systems same as previous: Yes Physical Exam Vital signs obtained and entered by: MINDY Austin MA Blood Pressure: 158/100 (LEFT ARM) Cuff size: regular Heart Rate: 68 O2 Saturation: 96 Height: 5 ft 9 in Weight: 218 lb 6.4 oz Body Mass Index: 32.2 BMI Classification: Obese Impression and Plan IMPRESSION: 1. Obstructive Sleep Apnea-Hypopnea Syndrome, mild, resolved. This is consistent with his report of sleeping well without using his CPAP. He may discontinue the CPAP therapy at this time. PLAN: 1. Discontinue CPAP. 2. Avoid weight gain. 3. Return for a follow up on as needed basis. Counseling Topics: Sleeping position, Weight control Follow up with Sleep Care in: as needed Visit Type: In Office Time Spent with Patient (minutes): 15 Provider Statement: I spent 100% of the Face to Face Visit with the patient with greater than 50% spent counseling the patient and coordination of care.
== END 2022-08-08 11:32 | disposition home or self-care (01) ==
LOC: SC 11:31
PROVIDERS: ATTEND Internal Medicine Pulmonary Disease
DX: G47.33 Obstructive sleep apnea (adult) (pediatric) (principal); E66.9 Obesity, unspecified; Z68.32 Body mass index [BMI] 32.0-32.9, adult
CPT/HCPCS: 99212; G0463

== ENCOUNTER 2022-10-11 14:29 | Outpatient (CLI) | payer MEDICARE, OTHER ==
[2022-10-11 17:50] LABS: BASOPHILS # (AUTO) 0.1 10^3/uL (0.0-0.1); BASOPHILS % (AUTO) 0.7 %; EOSINOPHILS # (AUTO) 0.2 10^3/uL (0.0-0.7); EOSINOPHILS % (AUTO) 2.4 %; HCT - HEMATOCRIT 50.3 % (42.0-52.0); HGB - HEMOGLOBIN 16.6 g/dL (14.0-18.0); LYMPHOCYTES # (AUTO) 2.1 10^3/uL (1.5-3.5); LYMPHOCYTES % (AUTO) 21.4 %; MEAN CORPUSCULAR HEMOGLOBIN 31.4 pg (27.0-31.0); MEAN CORPUSCULAR VOLUME 95.1 fL (80.0-94.0); MEAN PLATELET VOLUME 12.5 fL (7.4-11.4); MONOCYTES # (AUTO) 0.8 10^3/uL (0.0-1.0); MONOCYTES % (AUTO) 8.3 %; NEUTROPHILS # (AUTO) 6.4 10^3/uL (1.5-6.6); NEUTROPHILS % (AUTO) 66.9 %; PLT - PLATELET COUNT 189 10^3/uL (130-450); RED BLOOD COUNT 5.29 10^6/uL (4.70-6.10); RED CELL DISTRIBUTION WIDTH 11.8 % (12.0-15.0); WHITE BLOOD COUNT 9.6 x10^3/uL (4.8-10.8)
[2022-10-11 18:08] LABS: ALBUMIN 4.1 g/dL (3.2-5.5); ALBUMIN/GLOBULIN RATIO 1.5 (1.0-2.2); ALKALINE PHOSPHATASE 69 IU/L (42-121); ALT ALANINE AMINOTRANSFERASE 24 IU/L (10-60); AST ASPARTATE AMINOTRANSFERASE 19 IU/L (10-42); BUN - BLOOD UREA NITROGEN 20 mg/dL (6-20); CARBON DIOXIDE - CO2 33 mmol/L (21-32); CHLORIDE 106 mmol/L (101-111); CHOL/HDL RATIO 1.8 (<5.0); CHOLESTEROL 103 mg/dL; CREATININE 1.1 mg/dL (0.6-1.2); GFR - MDRD 64 (>89); GLUCOSE 80 mg/dL (70-100); HDL CHOLESTEROL 57 mg/dL; LDL CHOLESTEROL,CALCULATED 25 mg/dL; LDL/HDL RATIO 0.4 (<3.6); POTASSIUM 3.7 mmol/L (3.5-5.0); SODIUM 146 mmol/L (135-145); TOTAL PROTEIN 6.9 g/dL (6.7-8.2); TRIGLYCERIDES 103 mg/dL; VLDL CHOLESTEROL 21 mg/dL
[2022-10-11 18:16] LABS: THYROID STIMULATING HORMONE 2.69 uIU/mL (0.34-5.60)
[2022-10-11 20:32] LABS: ESTIMATED AVERAGE GLUCOSE 108 mg/dL (70-100); HEMOGLOBIN A1c% 5.4 % (4.27-6.07)
== END 2022-10-11 14:30 | disposition home or self-care (01) ==
LOC: LAB.N 14:29
PROVIDERS: ATTEND Nurse Practitioner
DX: I10 Essential (primary) hypertension (principal); I63.9 Cerebral infarction, unspecified; R73.03 Prediabetes; I48.91 Unspecified atrial fibrillation
CPT/HCPCS: 36415; 80053; 80061; 83036; 83721; 84443; 85025

== ENCOUNTER 2023-05-23 13:45 | Outpatient (CLI) | payer MEDICARE, OTHER ==
--- NOTE | 2023-05-23 19:09 | XRAY Report ---
PROCEDURE: Shoulder 2+V LT INDICATIONS: LEFT SHOULDER PAIN TECHNIQUE: 3 views of the shoulder were acquired. COMPARISON: None. FINDINGS: Bones: No fractures or dislocations. No suspicious bony lesions. Visualized ribs appear intact. Gl enohumeral joint degenerative change with severe joint space loss and small osteophytes. Calcific sup raspinatus tendinosis. AC joint hypertrophy with mild downward going component. Soft tissues: No suspicious soft tissue calcifications. The visualized lungs are within normal limi ts. IMPRESSION: Degenerative change, including severe glenohumeral joint joint space loss.No acute bony abnormality. Reviewed by: Matt Schulte MD on 05/23/2023 7:08 PM PST Approved by: Matt cShulte MD on 05/23/2023 7:08 PM PST Station ID: [id number]
--- NOTE | 2023-05-23 19:13 | XRAY Report ---
PROCEDURE: Wrist 2 View LT INDICATIONS: LEFT WRIST PAIN TECHNIQUE: 2 views of the wrist were acquired. COMPARISON: None. FINDINGS: Bones: No fractures or dislocations. No suspicious bony lesions. Soft tissues: Probable calcifications involving the triangle fibrocartilage. IMPRESSION: No acute bony abnormality. Reviewed by: Matt Schulte MD on 05/23/2023 7:12 PM PST Approved by: Matt Schulte MD on 05/23/2023 7:12 PM [facility] Station ID: [id number]
== END 2023-05-23 13:46 | disposition home or self-care (01) ==
LOC: DI 13:45
PROVIDERS: ATTEND Nurse Practitioner
DX: M25.532 Pain in left wrist (principal); M19.012 Primary osteoarthritis, left shoulder

== ENCOUNTER 2023-06-01 15:29 | Outpatient (CLI) | payer MEDICARE, OTHER ==
[2023-06-01 15:52] LABS: ALBUMIN 4.7 g/dL (3.2-5.5); ALBUMIN/GLOBULIN RATIO 1.7 (1.0-2.2); ALKALINE PHOSPHATASE 83 IU/L (42-121); ALT ALANINE AMINOTRANSFERASE 16 IU/L (10-60); AST ASPARTATE AMINOTRANSFERASE 15 IU/L (10-42); BILIRUBIN,TOTAL 1.1 mg/dL (0.2-1.0); BUN - BLOOD UREA NITROGEN 48 mg/dL (6-20); CARBON DIOXIDE - CO2 33 mmol/L (21-32); CHLORIDE 106 mmol/L (101-111); CHOL/HDL RATIO 2.2 (<5.0); CHOLESTEROL 95 mg/dL; CREATININE 1.6 mg/dL (0.6-1.3); GFR - MDRD 41 (>89); GLUCOSE 110 mg/dL (74-104); HDL CHOLESTEROL 44 mg/dL; LDL CHOLESTEROL,CALCULATED 21 mg/dL; LDL/HDL RATIO 0.5 (<3.6); POTASSIUM 3.7 mmol/L (3.5-4.5); SODIUM 144 mmol/L (135-145); TOTAL PROTEIN 7.5 g/dL (6.4-8.9); TRIGLYCERIDES 152 mg/dL (48-352); VLDL CHOLESTEROL 30 mg/dL
[2023-06-01 15:59] LABS: BASOPHILS # (AUTO) 0.1 10^3/uL (0.0-0.1); BASOPHILS % (AUTO) 1.3 %; EOSINOPHILS # (AUTO) 0.3 10^3/uL (0.0-0.7); EOSINOPHILS % (AUTO) 3.3 %; HCT - HEMATOCRIT 49.4 % (42.0-52.0); LYMPHOCYTES # (AUTO) 2.1 10^3/uL (1.5-3.5); LYMPHOCYTES % (AUTO) 26.9 %; MEAN CORPUSCULAR HEMOGLOBIN 30.6 pg (27.0-31.0); MEAN CORPUSCULAR HGB CONC 32.4 g/dL (32.0-36.0); MEAN CORPUSCULAR VOLUME 94.5 fL (80.0-94.0); MEAN PLATELET VOLUME 11.6 fL (7.4-11.4); MONOCYTES # (AUTO) 1.1 10^3/uL (0.0-1.0); MONOCYTES % (AUTO) 13.4 %; NEUTROPHILS # (AUTO) 4.3 10^3/uL (1.5-6.6); PLT - PLATELET COUNT 217 10^3/uL (130-450); RED BLOOD COUNT 5.23 10^6/uL (4.70-6.10); RED CELL DISTRIBUTION WIDTH 11.5 % (12.0-15.0); WHITE BLOOD COUNT 7.8 x10^3/uL (4.8-10.8)
== END 2023-06-01 15:30 | disposition home or self-care (01) ==
LOC: LAB 15:29
PROVIDERS: ATTEND Internal Medicine Cardiovascular Disease
DX: I10 Essential (primary) hypertension (principal)
CPT/HCPCS: 36415; 80053; 80061; 83721; 85025

== ENCOUNTER 2023-06-12 14:49 | Outpatient (CLI) | payer MEDICARE, OTHER ==
--- NOTE | 2023-06-12 16:43 | CT Report ---
PROCEDURE: Abdomen/Pelvis WO INDICATIONS: HEMATURIA TECHNIQUE: A CT scan of the abdomen and pelvis was performed without the use of intravenous contrast. Images we re recorded and evaluated at appropriate window settings. Reformats: coronal and sagittal. For radiat ion dose reduction, the following was used: automated exposure control, adjustment of mA and/or kV ac cording to patient size. COMPARISON: None. FINDINGS: Image quality: Excellent. Lung bases and heart: Mosaic attenuation. Cardiomegaly. Liver: No contour-deforming mass. Gallbladder and biliary tree: No radiopaque stones or wall thickening. No biliary dilation. Spleen: No splenomegaly. Irregular contour, possibly posttraumatic. Pancreas: No pancreatic ductal dilation. Adrenals: No adrenal nodule. Kidneys and ureters: No hydronephrosis. No renal cystic lesion which requires follow up. No solid mas s. No nephrolithiasis. Bowel and peritoneum: No bowel distension. No pathologic free fluid. Diverticulosis without evidence of diverticulitis. Lymph nodes: No central or retroperitoneal adenopathy. Vessels: No infrarenal aortic aneurysm. PELVIS Reproductive organs: Small umbilical hernia containing fat. Bladder: No wall thickness, accounting for underdistention. Pelvic lymph nodes: No pelvic adenopathy by size criteria. Bones: No aggressive osseous abnormality. Other: Small right inguinal hernia containing fat IMPRESSION: No hydronephrosis or obstructing renal stone. Colonic diverticulosis without evidence of diverticulitis. Mosaic attenuation of the lungs, suggestive of diffuse air trapping in the setting of small airways d isease. Reviewed by: Tobi Briones MD on 06/12/2023 4:42 PM PST Approved by: Tobi Briones MD on 06/12/2023 4:42 PM PST Station ID: [id number]
== END 2023-06-12 14:50 | disposition home or self-care (01) ==
LOC: DI 14:49
PROVIDERS: ATTEND Urology
DX: R31.0 Gross hematuria (principal); K57.90 Diverticulosis of intestine, part unspecified, without perforation or abscess without bleeding